=== PATIENT | female | born 1955 | race African-American/Black ===

== ENCOUNTER 2020-07-16 09:08 | Outpatient (CLI) | payer OTHER | END 2020-07-16 09:09 | disposition home or self-care (01) | LOC: CSHWCC 09:08 | PROVIDERS: ATTEND Nurse Practitioner Family | DX: I87.313 Chronic venous hypertension (idiopathic) with ulcer of bilateral lower extremity (principal); L89.152 Pressure ulcer of sacral region, stage 2; I87.2 Venous insufficiency (chronic) (peripheral); L97.822 Non-pressure chronic ulcer of other part of left lower leg with fat layer exposed; L97.812 Non-pressure chronic ulcer of other part of right lower leg with fat layer exposed; L03.116 Cellulitis of left lower limb; R60.0 Localized edema; E03.8 Other specified hypothyroidism; B96.89 Other specified bacterial agents as the cause of diseases classified elsewhere | CPT/HCPCS: 29581; 99213; G0463 ==

== ENCOUNTER 2020-08-06 12:32 | Outpatient (CLI) | payer OTHER | END 2020-08-06 12:33 | disposition home or self-care (01) | LOC: CSHWCC 12:32 | PROVIDERS: ATTEND Nurse Practitioner Family | DX: I87.313 Chronic venous hypertension (idiopathic) with ulcer of bilateral lower extremity (principal); I87.2 Venous insufficiency (chronic) (peripheral); L89.152 Pressure ulcer of sacral region, stage 2; L97.822 Non-pressure chronic ulcer of other part of left lower leg with fat layer exposed; L97.812 Non-pressure chronic ulcer of other part of right lower leg with fat layer exposed; R60.0 Localized edema; E03.8 Other specified hypothyroidism; L03.116 Cellulitis of left lower limb; B96.89 Other specified bacterial agents as the cause of diseases classified elsewhere | CPT/HCPCS: 29581; 99213; G0463 ==

== ENCOUNTER 2020-11-12 09:11 | Outpatient (CLI) | payer OTHER | END 2020-11-12 09:12 | disposition home or self-care (01) | LOC: CSHWCC 09:11 | PROVIDERS: ATTEND Nurse Practitioner Family | DX: I87.312 Chronic venous hypertension (idiopathic) with ulcer of left lower extremity (principal); I87.2 Venous insufficiency (chronic) (peripheral); L97.822 Non-pressure chronic ulcer of other part of left lower leg with fat layer exposed; L03.116 Cellulitis of left lower limb; E03.8 Other specified hypothyroidism; B96.89 Other specified bacterial agents as the cause of diseases classified elsewhere; R60.0 Localized edema | CPT/HCPCS: 11042; 11045; 99213; G0463 ==

== ENCOUNTER 2020-12-10 10:11 | Outpatient (CLI) | payer MEDICARE, OTHER | END 2020-12-10 10:12 | disposition home or self-care (01) | LOC: CSHWCC 10:11 | PROVIDERS: ATTEND Nurse Practitioner Family | DX: I87.312 Chronic venous hypertension (idiopathic) with ulcer of left lower extremity (principal); L97.822 Non-pressure chronic ulcer of other part of left lower leg with fat layer exposed; L03.116 Cellulitis of left lower limb; R60.0 Localized edema; I87.2 Venous insufficiency (chronic) (peripheral); E03.8 Other specified hypothyroidism; B96.89 Other specified bacterial agents as the cause of diseases classified elsewhere | CPT/HCPCS: 11042; 11045; 99213; G0463 ==

== ENCOUNTER 2021-02-05 11:00 | Outpatient (CLI) | payer MEDICARE, OTHER | END 2021-02-05 11:01 | disposition home or self-care (01) | LOC: CSHWCC 11:00 | PROVIDERS: ATTEND Nurse Practitioner Family | DX: I87.312 Chronic venous hypertension (idiopathic) with ulcer of left lower extremity (principal); E03.8 Other specified hypothyroidism; I87.2 Venous insufficiency (chronic) (peripheral); L97.222 Non-pressure chronic ulcer of left calf with fat layer exposed; L97.322 Non-pressure chronic ulcer of left ankle with fat layer exposed; L97.822 Non-pressure chronic ulcer of other part of left lower leg with fat layer exposed; L03.116 Cellulitis of left lower limb; B96.89 Other specified bacterial agents as the cause of diseases classified elsewhere; R60.0 Localized edema | CPT/HCPCS: 29581; 97139; G0463; 99213 ==

== ENCOUNTER 2021-02-09 09:20 | Outpatient (CLI) | payer MEDICARE, OTHER | END 2021-02-09 09:21 | disposition home or self-care (01) | LOC: CSHWCC 09:20 | PROVIDERS: ATTEND Nurse Practitioner Family | DX: I87.312 Chronic venous hypertension (idiopathic) with ulcer of left lower extremity (principal); L97.322 Non-pressure chronic ulcer of left ankle with fat layer exposed; L97.822 Non-pressure chronic ulcer of other part of left lower leg with fat layer exposed; L03.116 Cellulitis of left lower limb; B96.89 Other specified bacterial agents as the cause of diseases classified elsewhere; R60.0 Localized edema; E03.8 Other specified hypothyroidism | CPT/HCPCS: 29581; 99213; G0463 ==

== ENCOUNTER 2021-02-12 09:58 | Outpatient (CLI) | payer MEDICARE, OTHER | END 2021-02-12 09:59 | disposition home or self-care (01) | LOC: CSHWCC 09:58 | PROVIDERS: ATTEND Nurse Practitioner Family | DX: I87.312 Chronic venous hypertension (idiopathic) with ulcer of left lower extremity (principal); I87.2 Venous insufficiency (chronic) (peripheral); L97.222 Non-pressure chronic ulcer of left calf with fat layer exposed; L97.322 Non-pressure chronic ulcer of left ankle with fat layer exposed; L97.822 Non-pressure chronic ulcer of other part of left lower leg with fat layer exposed; L03.116 Cellulitis of left lower limb; R60.0 Localized edema; E03.8 Other specified hypothyroidism; B96.89 Other specified bacterial agents as the cause of diseases classified elsewhere | CPT/HCPCS: 29581; 99213; G0463 ==

== ENCOUNTER 2021-02-16 15:08 | Outpatient (CLI) | payer MEDICARE, OTHER | END 2021-02-16 15:09 | disposition home or self-care (01) | LOC: CSHWCC 15:08 | PROVIDERS: ATTEND Nurse Practitioner Family | DX: I87.312 Chronic venous hypertension (idiopathic) with ulcer of left lower extremity (principal); L97.222 Non-pressure chronic ulcer of left calf with fat layer exposed; L97.322 Non-pressure chronic ulcer of left ankle with fat layer exposed; L97.822 Non-pressure chronic ulcer of other part of left lower leg with fat layer exposed; R60.0 Localized edema; E03.8 Other specified hypothyroidism; I87.2 Venous insufficiency (chronic) (peripheral); L03.116 Cellulitis of left lower limb; B96.89 Other specified bacterial agents as the cause of diseases classified elsewhere | CPT/HCPCS: 29581; 97139; G0463; 99213 ==

== ENCOUNTER 2021-02-19 08:46 | Outpatient (CLI) | payer OTHER, MEDICARE | END 2021-02-19 08:47 | disposition home or self-care (01) | LOC: CSHWCC 08:46 | PROVIDERS: ATTEND Nurse Practitioner Family | DX: I87.312 Chronic venous hypertension (idiopathic) with ulcer of left lower extremity (principal); I87.2 Venous insufficiency (chronic) (peripheral); L97.222 Non-pressure chronic ulcer of left calf with fat layer exposed; L97.322 Non-pressure chronic ulcer of left ankle with fat layer exposed; L97.822 Non-pressure chronic ulcer of other part of left lower leg with fat layer exposed; L03.116 Cellulitis of left lower limb; R60.0 Localized edema; E03.8 Other specified hypothyroidism; B96.89 Other specified bacterial agents as the cause of diseases classified elsewhere ==

== ENCOUNTER 2021-02-24 10:59 | Outpatient (CLI) | payer OTHER, MEDICARE | END 2021-02-24 11:00 | disposition home or self-care (01) | LOC: CSHWCC 10:59 | PROVIDERS: ATTEND Nurse Practitioner Family | DX: I87.312 Chronic venous hypertension (idiopathic) with ulcer of left lower extremity (principal); I87.2 Venous insufficiency (chronic) (peripheral); L97.222 Non-pressure chronic ulcer of left calf with fat layer exposed; L03.116 Cellulitis of left lower limb; R60.0 Localized edema; E03.8 Other specified hypothyroidism; B96.89 Other specified bacterial agents as the cause of diseases classified elsewhere | CPT/HCPCS: 29581; 99213; G0463 ==

== ENCOUNTER 2021-02-26 10:19 | Outpatient (CLI) | payer OTHER, MEDICARE | END 2021-02-26 10:20 | disposition home or self-care (01) | LOC: CSHWCC 10:19 | PROVIDERS: ATTEND Nurse Practitioner Family | DX: I87.312 Chronic venous hypertension (idiopathic) with ulcer of left lower extremity (principal); I87.2 Venous insufficiency (chronic) (peripheral); L97.222 Non-pressure chronic ulcer of left calf with fat layer exposed; L97.322 Non-pressure chronic ulcer of left ankle with fat layer exposed; L97.822 Non-pressure chronic ulcer of other part of left lower leg with fat layer exposed; L03.116 Cellulitis of left lower limb; R60.0 Localized edema; E03.8 Other specified hypothyroidism; B96.89 Other specified bacterial agents as the cause of diseases classified elsewhere | CPT/HCPCS: 29581; 99213; G0463 ==

== ENCOUNTER 2021-03-02 09:35 | Outpatient (CLI) | payer MEDICARE, OTHER | END 2021-03-02 09:36 | disposition home or self-care (01) | LOC: CSHWCC 09:35 | PROVIDERS: ATTEND Nurse Practitioner Family | DX: I87.312 Chronic venous hypertension (idiopathic) with ulcer of left lower extremity (principal); I87.2 Venous insufficiency (chronic) (peripheral); L97.222 Non-pressure chronic ulcer of left calf with fat layer exposed; L97.322 Non-pressure chronic ulcer of left ankle with fat layer exposed; L97.822 Non-pressure chronic ulcer of other part of left lower leg with fat layer exposed; L03.116 Cellulitis of left lower limb; E03.8 Other specified hypothyroidism; B96.89 Other specified bacterial agents as the cause of diseases classified elsewhere; R60.0 Localized edema | CPT/HCPCS: 29581; 99213; G0463 ==

== ENCOUNTER 2021-03-05 10:30 | Outpatient (CLI) | payer MEDICARE | END 2021-03-05 10:31 | disposition home or self-care (01) | LOC: CSHWCC 10:30 | PROVIDERS: ATTEND Nurse Practitioner Family | DX: I87.312 Chronic venous hypertension (idiopathic) with ulcer of left lower extremity (principal); I87.2 Venous insufficiency (chronic) (peripheral); L97.222 Non-pressure chronic ulcer of left calf with fat layer exposed; L97.322 Non-pressure chronic ulcer of left ankle with fat layer exposed; L97.822 Non-pressure chronic ulcer of other part of left lower leg with fat layer exposed; L03.116 Cellulitis of left lower limb; R60.0 Localized edema; E03.8 Other specified hypothyroidism | CPT/HCPCS: 29581; 97139; G0463; 99213 ==

== ENCOUNTER 2021-03-11 11:17 | Outpatient (CLI) | payer OTHER, MEDICARE | END 2021-03-11 11:18 | disposition home or self-care (01) | LOC: CSHWCC 11:17 | PROVIDERS: ATTEND Nurse Practitioner Family | DX: I87.312 Chronic venous hypertension (idiopathic) with ulcer of left lower extremity (principal); I87.2 Venous insufficiency (chronic) (peripheral); L97.222 Non-pressure chronic ulcer of left calf with fat layer exposed; L97.322 Non-pressure chronic ulcer of left ankle with fat layer exposed; L97.822 Non-pressure chronic ulcer of other part of left lower leg with fat layer exposed; E03.8 Other specified hypothyroidism; L03.116 Cellulitis of left lower limb; B96.89 Other specified bacterial agents as the cause of diseases classified elsewhere; R60.0 Localized edema | CPT/HCPCS: 29581; 99213; G0463 ==

== ENCOUNTER 2021-03-16 11:09 | Outpatient (CLI) | payer OTHER, MEDICARE | END 2021-03-16 11:10 | disposition home or self-care (01) | LOC: CSHWCC 11:09 | PROVIDERS: ATTEND Nurse Practitioner Family | DX: I87.312 Chronic venous hypertension (idiopathic) with ulcer of left lower extremity (principal); I87.2 Venous insufficiency (chronic) (peripheral); L97.222 Non-pressure chronic ulcer of left calf with fat layer exposed; L97.322 Non-pressure chronic ulcer of left ankle with fat layer exposed; L97.822 Non-pressure chronic ulcer of other part of left lower leg with fat layer exposed; L03.116 Cellulitis of left lower limb; E03.8 Other specified hypothyroidism; B96.89 Other specified bacterial agents as the cause of diseases classified elsewhere; R60.0 Localized edema | CPT/HCPCS: 29581; 99213; G0463 ==

== ENCOUNTER 2021-03-19 09:43 | Outpatient (CLI) | payer OTHER, MEDICARE | END 2021-03-19 09:44 | disposition home or self-care (01) | LOC: CSHWCC 09:43 | PROVIDERS: ATTEND Nurse Practitioner Family | DX: I87.312 Chronic venous hypertension (idiopathic) with ulcer of left lower extremity (principal); L97.222 Non-pressure chronic ulcer of left calf with fat layer exposed; L97.322 Non-pressure chronic ulcer of left ankle with fat layer exposed; L97.822 Non-pressure chronic ulcer of other part of left lower leg with fat layer exposed; R60.0 Localized edema; L03.116 Cellulitis of left lower limb; E03.8 Other specified hypothyroidism; I87.2 Venous insufficiency (chronic) (peripheral); B96.89 Other specified bacterial agents as the cause of diseases classified elsewhere | CPT/HCPCS: 29581; 99213; G0463 ==

== ENCOUNTER 2021-03-23 09:22 | Outpatient (CLI) | payer OTHER, MEDICARE | END 2021-03-23 09:23 | disposition home or self-care (01) | LOC: CSHWCC 09:22 | PROVIDERS: ATTEND Nurse Practitioner Family | DX: I87.312 Chronic venous hypertension (idiopathic) with ulcer of left lower extremity (principal); I87.2 Venous insufficiency (chronic) (peripheral); L97.222 Non-pressure chronic ulcer of left calf with fat layer exposed; L97.322 Non-pressure chronic ulcer of left ankle with fat layer exposed; L97.822 Non-pressure chronic ulcer of other part of left lower leg with fat layer exposed; L03.116 Cellulitis of left lower limb; R60.0 Localized edema; B96.89 Other specified bacterial agents as the cause of diseases classified elsewhere; E03.8 Other specified hypothyroidism | CPT/HCPCS: 29581; 99213; G0463 ==

== ENCOUNTER 2021-04-02 13:37 | Outpatient (CLI) | payer OTHER, MEDICARE | END 2021-04-02 13:38 | disposition home or self-care (01) | LOC: CSHWCC 13:37 | PROVIDERS: ATTEND Nurse Practitioner Family | DX: I87.312 Chronic venous hypertension (idiopathic) with ulcer of left lower extremity (principal); E03.8 Other specified hypothyroidism; I87.2 Venous insufficiency (chronic) (peripheral); L97.222 Non-pressure chronic ulcer of left calf with fat layer exposed; L97.322 Non-pressure chronic ulcer of left ankle with fat layer exposed; L97.822 Non-pressure chronic ulcer of other part of left lower leg with fat layer exposed; L03.116 Cellulitis of left lower limb; B96.89 Other specified bacterial agents as the cause of diseases classified elsewhere; R60.0 Localized edema | CPT/HCPCS: 29581; 99213; G0463 ==

== ENCOUNTER 2021-04-06 13:08 | Outpatient (CLI) | payer OTHER, MEDICARE | END 2021-04-06 13:09 | disposition home or self-care (01) | LOC: CSHWCC 13:08 | PROVIDERS: ATTEND Nurse Practitioner Family | DX: I87.312 Chronic venous hypertension (idiopathic) with ulcer of left lower extremity (principal); I87.2 Venous insufficiency (chronic) (peripheral); L97.222 Non-pressure chronic ulcer of left calf with fat layer exposed; L97.822 Non-pressure chronic ulcer of other part of left lower leg with fat layer exposed; L03.116 Cellulitis of left lower limb; B96.89 Other specified bacterial agents as the cause of diseases classified elsewhere; E03.8 Other specified hypothyroidism; R60.0 Localized edema | CPT/HCPCS: 29581; 99213; G0463 ==

== ENCOUNTER 2021-04-09 14:52 | Outpatient (CLI) | payer OTHER, MEDICARE | END 2021-04-09 14:53 | disposition home or self-care (01) | LOC: CSHWCC 14:52 | PROVIDERS: ATTEND Nurse Practitioner Family | DX: I87.332 Chronic venous hypertension (idiopathic) with ulcer and inflammation of left lower extremity (principal); L97.222 Non-pressure chronic ulcer of left calf with fat layer exposed; R60.0 Localized edema; E11.65 Type 2 diabetes mellitus with hyperglycemia; G90.09 Other idiopathic peripheral autonomic neuropathy; H40.9 Unspecified glaucoma; I10 Essential (primary) hypertension; I82.409 Acute embolism and thrombosis of unspecified deep veins of unspecified lower extremity; I87.2 Venous insufficiency (chronic) (peripheral); M13.80 Other specified arthritis, unspecified site | CPT/HCPCS: 29581 ==

== ENCOUNTER 2021-04-13 08:35 | Outpatient (CLI) | payer OTHER, MEDICARE | END 2021-04-13 08:36 | disposition home or self-care (01) | LOC: CSHWCC 08:35 | PROVIDERS: ATTEND Nurse Practitioner Family | DX: I87.312 Chronic venous hypertension (idiopathic) with ulcer of left lower extremity (principal); I87.2 Venous insufficiency (chronic) (peripheral); L97.222 Non-pressure chronic ulcer of left calf with fat layer exposed; L97.822 Non-pressure chronic ulcer of other part of left lower leg with fat layer exposed; L03.116 Cellulitis of left lower limb; E03.8 Other specified hypothyroidism; B96.89 Other specified bacterial agents as the cause of diseases classified elsewhere; R60.0 Localized edema | CPT/HCPCS: 29581; 99213; G0463 ==

== ENCOUNTER 2021-04-16 15:06 | Outpatient (CLI) | payer OTHER, MEDICARE | END 2021-04-16 15:07 | disposition home or self-care (01) | LOC: CSHWCC 15:06 | PROVIDERS: ATTEND Nurse Practitioner Family | DX: I87.312 Chronic venous hypertension (idiopathic) with ulcer of left lower extremity (principal); E03.8 Other specified hypothyroidism; I87.2 Venous insufficiency (chronic) (peripheral); L97.222 Non-pressure chronic ulcer of left calf with fat layer exposed; L97.822 Non-pressure chronic ulcer of other part of left lower leg with fat layer exposed; L03.116 Cellulitis of left lower limb; B96.89 Other specified bacterial agents as the cause of diseases classified elsewhere; R60.0 Localized edema | CPT/HCPCS: 29581; 99213; G0463 ==

== ENCOUNTER 2021-04-20 09:45 | Outpatient (CLI) | payer OTHER, MEDICARE | END 2021-04-20 09:46 | disposition home or self-care (01) | LOC: CSHWCC 09:45 | PROVIDERS: ATTEND Nurse Practitioner Family | DX: I87.312 Chronic venous hypertension (idiopathic) with ulcer of left lower extremity (principal); I87.2 Venous insufficiency (chronic) (peripheral); L97.222 Non-pressure chronic ulcer of left calf with fat layer exposed; L97.822 Non-pressure chronic ulcer of other part of left lower leg with fat layer exposed; E03.8 Other specified hypothyroidism; L03.116 Cellulitis of left lower limb; B96.89 Other specified bacterial agents as the cause of diseases classified elsewhere; R60.0 Localized edema | CPT/HCPCS: 29581; 99213; G0463 ==

== ENCOUNTER 2021-04-23 15:33 | Outpatient (CLI) | payer MEDICARE, BC | END 2021-04-23 15:34 | disposition home or self-care (01) | LOC: CSHWCC 15:33 | PROVIDERS: ATTEND Nurse Practitioner Family | DX: I87.312 Chronic venous hypertension (idiopathic) with ulcer of left lower extremity (principal); I87.2 Venous insufficiency (chronic) (peripheral); L97.222 Non-pressure chronic ulcer of left calf with fat layer exposed; L03.116 Cellulitis of left lower limb; R60.0 Localized edema; E03.8 Other specified hypothyroidism; B96.89 Other specified bacterial agents as the cause of diseases classified elsewhere ==

== ENCOUNTER 2021-04-27 15:43 | Outpatient (CLI) | payer OTHER, MEDICARE | END 2021-04-27 15:44 | disposition home or self-care (01) | LOC: CSHWCC 15:43 | PROVIDERS: ATTEND Nurse Practitioner Family | DX: I87.312 Chronic venous hypertension (idiopathic) with ulcer of left lower extremity (principal); L97.222 Non-pressure chronic ulcer of left calf with fat layer exposed; L97.822 Non-pressure chronic ulcer of other part of left lower leg with fat layer exposed; L03.116 Cellulitis of left lower limb; R60.0 Localized edema; E03.8 Other specified hypothyroidism; I87.2 Venous insufficiency (chronic) (peripheral); B96.89 Other specified bacterial agents as the cause of diseases classified elsewhere ==

== ENCOUNTER 2021-04-30 15:29 | Outpatient (CLI) | payer OTHER, MEDICARE | END 2021-04-30 15:30 | disposition home or self-care (01) | LOC: CSHWCC 15:29 | PROVIDERS: ATTEND Nurse Practitioner Family | DX: I87.312 Chronic venous hypertension (idiopathic) with ulcer of left lower extremity (principal); L97.822 Non-pressure chronic ulcer of other part of left lower leg with fat layer exposed; L97.222 Non-pressure chronic ulcer of left calf with fat layer exposed; R60.0 Localized edema; L03.116 Cellulitis of left lower limb; E03.8 Other specified hypothyroidism; I87.2 Venous insufficiency (chronic) (peripheral); B96.89 Other specified bacterial agents as the cause of diseases classified elsewhere ==

== ENCOUNTER 2021-05-04 14:56 | Outpatient (CLI) | payer OTHER, MEDICARE | END 2021-05-04 14:57 | disposition home or self-care (01) | LOC: CSHWCC 14:56 | PROVIDERS: ATTEND Nurse Practitioner Family | DX: I87.312 Chronic venous hypertension (idiopathic) with ulcer of left lower extremity (principal); I87.2 Venous insufficiency (chronic) (peripheral); L97.822 Non-pressure chronic ulcer of other part of left lower leg with fat layer exposed; L97.222 Non-pressure chronic ulcer of left calf with fat layer exposed; L03.116 Cellulitis of left lower limb; E03.8 Other specified hypothyroidism; B96.89 Other specified bacterial agents as the cause of diseases classified elsewhere; R60.0 Localized edema ==

== ENCOUNTER 2021-05-07 15:28 | Outpatient (CLI) | payer OTHER, MEDICARE | END 2021-05-07 15:29 | disposition home or self-care (01) | LOC: CSHWCC 15:28 | PROVIDERS: ATTEND Nurse Practitioner Family | DX: I87.312 Chronic venous hypertension (idiopathic) with ulcer of left lower extremity (principal); L97.222 Non-pressure chronic ulcer of left calf with fat layer exposed; L97.822 Non-pressure chronic ulcer of other part of left lower leg with fat layer exposed; L03.116 Cellulitis of left lower limb; R60.0 Localized edema; E03.8 Other specified hypothyroidism; I87.2 Venous insufficiency (chronic) (peripheral); B96.89 Other specified bacterial agents as the cause of diseases classified elsewhere | CPT/HCPCS: 29581; 99213; G0463 ==

== ENCOUNTER 2021-05-14 12:55 | Outpatient (CLI) | payer MEDICARE, BC | END 2021-05-14 12:56 | disposition home or self-care (01) | LOC: CSHWCC 12:55 | PROVIDERS: ATTEND Nurse Practitioner Family | DX: I87.312 Chronic venous hypertension (idiopathic) with ulcer of left lower extremity (principal); L97.321 Non-pressure chronic ulcer of left ankle limited to breakdown of skin; R60.0 Localized edema ==

== ENCOUNTER 2021-05-18 15:10 | Outpatient (CLI) | payer OTHER, MEDICARE, BC | END 2021-05-18 15:11 | disposition home or self-care (01) | LOC: CSHWCC 15:10 | PROVIDERS: ATTEND Nurse Practitioner Family | DX: I87.313 Chronic venous hypertension (idiopathic) with ulcer of bilateral lower extremity (principal); R60.0 Localized edema; L97.929 Non-pressure chronic ulcer of unspecified part of left lower leg with unspecified severity; L97.919 Non-pressure chronic ulcer of unspecified part of right lower leg with unspecified severity | CPT/HCPCS: 29581; 97139; G0463; 99213 ==

== ENCOUNTER 2021-05-25 12:45 | Outpatient (CLI) | payer OTHER, MEDICARE, BC | END 2021-05-25 12:46 | disposition home or self-care (01) | LOC: CSHWCC 12:45 | PROVIDERS: ATTEND Nurse Practitioner Family | DX: I87.312 Chronic venous hypertension (idiopathic) with ulcer of left lower extremity (principal); L97.929 Non-pressure chronic ulcer of unspecified part of left lower leg with unspecified severity; R60.0 Localized edema | CPT/HCPCS: 29581 ==

== ENCOUNTER 2021-05-28 15:29 | Outpatient (CLI) | payer BC, MEDICARE | END 2021-05-28 15:30 | disposition home or self-care (01) | LOC: CSHWCC 15:29 | PROVIDERS: ATTEND Nurse Practitioner Family | DX: I87.313 Chronic venous hypertension (idiopathic) with ulcer of bilateral lower extremity (principal); L97.929 Non-pressure chronic ulcer of unspecified part of left lower leg with unspecified severity; L97.919 Non-pressure chronic ulcer of unspecified part of right lower leg with unspecified severity; R60.0 Localized edema ==

== ENCOUNTER 2021-06-01 14:10 | Outpatient (CLI) | payer OTHER, MEDICARE, BC | END 2021-06-01 14:11 | disposition home or self-care (01) | LOC: CSHWCC 14:10 | PROVIDERS: ATTEND Nurse Practitioner Family | DX: I87.312 Chronic venous hypertension (idiopathic) with ulcer of left lower extremity (principal); L97.821 Non-pressure chronic ulcer of other part of left lower leg limited to breakdown of skin; R60.0 Localized edema ==

== ENCOUNTER 2021-06-04 14:02 | Outpatient (CLI) | payer OTHER, MEDICARE, BC | END 2021-06-04 14:03 | disposition home or self-care (01) | LOC: CSHWCC 14:02 | PROVIDERS: ATTEND Nurse Practitioner Family | DX: I87.312 Chronic venous hypertension (idiopathic) with ulcer of left lower extremity (principal); L97.321 Non-pressure chronic ulcer of left ankle limited to breakdown of skin; R60.0 Localized edema | CPT/HCPCS: 29581 ==

== ENCOUNTER 2021-06-08 15:06 | Outpatient (CLI) | payer OTHER, MEDICARE, BC | END 2021-06-08 15:07 | disposition home or self-care (01) | LOC: CSHWCC 15:06 | PROVIDERS: ATTEND Nurse Practitioner Family | DX: I87.312 Chronic venous hypertension (idiopathic) with ulcer of left lower extremity (principal); L97.321 Non-pressure chronic ulcer of left ankle limited to breakdown of skin; R60.0 Localized edema ==

== ENCOUNTER 2021-06-11 11:23 | Outpatient (CLI) | payer OTHER, MEDICARE | END 2021-06-11 11:24 | disposition home or self-care (01) | LOC: CSHWCC 11:23 | PROVIDERS: ATTEND Nurse Practitioner Family | DX: I87.312 Chronic venous hypertension (idiopathic) with ulcer of left lower extremity (principal); L97.321 Non-pressure chronic ulcer of left ankle limited to breakdown of skin; R60.0 Localized edema | CPT/HCPCS: 29581 ==

== ENCOUNTER 2021-06-15 12:12 | Outpatient (CLI) | payer OTHER, MEDICARE | END 2021-06-15 12:13 | disposition home or self-care (01) | LOC: CSHWCC 12:12 | PROVIDERS: ATTEND Nurse Practitioner Family | DX: I87.312 Chronic venous hypertension (idiopathic) with ulcer of left lower extremity (principal); L97.329 Non-pressure chronic ulcer of left ankle with unspecified severity; R60.0 Localized edema | CPT/HCPCS: 29581; 99213; G0463 ==

== ENCOUNTER 2021-06-22 15:36 | Outpatient (CLI) | payer OTHER, MEDICARE, BC | END 2021-06-22 15:37 | disposition home or self-care (01) | LOC: CSHWCC 15:36 | PROVIDERS: ATTEND Nurse Practitioner Family | DX: I87.312 Chronic venous hypertension (idiopathic) with ulcer of left lower extremity (principal); L97.321 Non-pressure chronic ulcer of left ankle limited to breakdown of skin; R60.0 Localized edema ==

== ENCOUNTER 2021-07-17 11:36 | Outpatient (CLI) | payer OTHER, MEDICARE | END 2021-07-17 11:37 | disposition home or self-care (01) | LOC: CSHWCC 11:36 | PROVIDERS: ATTEND Nurse Practitioner Family | DX: I87.312 Chronic venous hypertension (idiopathic) with ulcer of left lower extremity (principal); L97.321 Non-pressure chronic ulcer of left ankle limited to breakdown of skin; R60.0 Localized edema ==

== ENCOUNTER 2021-07-24 11:11 | Outpatient (CLI) | payer BC, MEDICARE | END 2021-07-24 11:12 | disposition home or self-care (01) | LOC: CSHWCC 11:11 | PROVIDERS: ATTEND Nurse Practitioner Family | DX: I87.312 Chronic venous hypertension (idiopathic) with ulcer of left lower extremity (principal); L97.321 Non-pressure chronic ulcer of left ankle limited to breakdown of skin; R60.0 Localized edema | CPT/HCPCS: 29581 ==

== ENCOUNTER 2021-08-05 15:31 | Outpatient (CLI) | payer BC, MEDICARE | END 2021-08-05 15:32 | disposition home or self-care (01) | LOC: CSHWCC 15:31 | PROVIDERS: ATTEND Nurse Practitioner Family | DX: I87.312 Chronic venous hypertension (idiopathic) with ulcer of left lower extremity (principal); L97.321 Non-pressure chronic ulcer of left ankle limited to breakdown of skin; R60.0 Localized edema | CPT/HCPCS: 29581 ==

== ENCOUNTER 2021-08-12 14:50 | Outpatient (CLI) | payer MEDICARE, OTHER | END 2021-08-12 14:51 | disposition home or self-care (01) | LOC: CSHWCC 14:50 | PROVIDERS: ATTEND Nurse Practitioner Family | DX: I87.312 Chronic venous hypertension (idiopathic) with ulcer of left lower extremity (principal); L97.321 Non-pressure chronic ulcer of left ankle limited to breakdown of skin; R60.0 Localized edema | CPT/HCPCS: 29581 ==

== ENCOUNTER 2021-08-19 15:26 | Outpatient (CLI) | payer BC, MEDICARE, OTHER | END 2021-08-19 15:27 | disposition home or self-care (01) | LOC: CSHWCC 15:26 | PROVIDERS: ATTEND Nurse Practitioner Family | DX: I87.312 Chronic venous hypertension (idiopathic) with ulcer of left lower extremity (principal); L97.321 Non-pressure chronic ulcer of left ankle limited to breakdown of skin; R60.0 Localized edema | CPT/HCPCS: 29581; 87070; 87077; 87186; 87205; 99213; G0463 ==

== ENCOUNTER 2021-08-26 15:20 | Outpatient (CLI) | payer BC, MEDICARE, OTHER | END 2021-08-26 15:21 | disposition home or self-care (01) | LOC: CSHWCC 15:20 | PROVIDERS: ATTEND Nurse Practitioner Family | DX: I87.312 Chronic venous hypertension (idiopathic) with ulcer of left lower extremity (principal); L97.321 Non-pressure chronic ulcer of left ankle limited to breakdown of skin; R60.0 Localized edema | CPT/HCPCS: 29581 ==

== ENCOUNTER 2021-09-02 15:20 | Outpatient (CLI) | payer BC, MEDICARE, OTHER | END 2021-09-02 15:21 | disposition home or self-care (01) | LOC: CSHWCC 15:20 | PROVIDERS: ATTEND Nurse Practitioner Family | DX: I87.312 Chronic venous hypertension (idiopathic) with ulcer of left lower extremity (principal); L97.321 Non-pressure chronic ulcer of left ankle limited to breakdown of skin; R60.0 Localized edema | CPT/HCPCS: 29581 ==

== ENCOUNTER 2021-09-09 15:29 | Outpatient (CLI) | payer MEDICARE, BC, OTHER | END 2021-09-09 15:30 | disposition home or self-care (01) | LOC: CSHWCC 15:29 | PROVIDERS: ATTEND Nurse Practitioner Family | DX: I87.312 Chronic venous hypertension (idiopathic) with ulcer of left lower extremity (principal); L97.321 Non-pressure chronic ulcer of left ankle limited to breakdown of skin; R60.0 Localized edema | CPT/HCPCS: 29581 ==

== ENCOUNTER 2021-09-17 15:23 | Outpatient (CLI) | payer BC, MEDICARE, OTHER | END 2021-09-17 15:24 | disposition home or self-care (01) | LOC: CSHWCC 15:23 | PROVIDERS: ATTEND Nurse Practitioner Family | DX: I87.312 Chronic venous hypertension (idiopathic) with ulcer of left lower extremity (principal); L97.312 Non-pressure chronic ulcer of right ankle with fat layer exposed; R60.0 Localized edema ==

== ENCOUNTER 2021-09-24 15:04 | Outpatient (CLI) | payer BC, MEDICARE | END 2021-09-24 15:05 | disposition home or self-care (01) | LOC: CSHWCC 15:04 | PROVIDERS: ATTEND Nurse Practitioner Family | DX: I87.312 Chronic venous hypertension (idiopathic) with ulcer of left lower extremity (principal); L97.321 Non-pressure chronic ulcer of left ankle limited to breakdown of skin; R60.0 Localized edema | CPT/HCPCS: 17250 ==

== ENCOUNTER 2021-10-01 14:57 | Outpatient (CLI) | payer BC, MEDICARE, OTHER | END 2021-10-01 14:58 | disposition home or self-care (01) | LOC: CSHWCC 14:57 | PROVIDERS: ATTEND Nurse Practitioner Family | DX: I87.312 Chronic venous hypertension (idiopathic) with ulcer of left lower extremity (principal); L97.321 Non-pressure chronic ulcer of left ankle limited to breakdown of skin; R60.0 Localized edema | CPT/HCPCS: 29581 ==

== ENCOUNTER 2021-10-08 13:44 | Outpatient (CLI) | payer BC, MEDICARE | END 2021-10-08 13:45 | disposition home or self-care (01) | LOC: CSHWCC 13:44 | PROVIDERS: ATTEND Nurse Practitioner Family | DX: I87.312 Chronic venous hypertension (idiopathic) with ulcer of left lower extremity (principal); L97.321 Non-pressure chronic ulcer of left ankle limited to breakdown of skin; R60.0 Localized edema | CPT/HCPCS: 29581 ==

== ENCOUNTER 2021-10-15 14:53 | Outpatient (CLI) | payer BC, MEDICARE | END 2021-10-15 14:54 | disposition home or self-care (01) | LOC: CSHWCC 14:53 | PROVIDERS: ATTEND Nurse Practitioner Family | DX: I87.312 Chronic venous hypertension (idiopathic) with ulcer of left lower extremity (principal); L97.321 Non-pressure chronic ulcer of left ankle limited to breakdown of skin; R60.0 Localized edema | CPT/HCPCS: 29581; 99213; G0463 ==

== ENCOUNTER 2021-10-22 15:07 | Outpatient (CLI) | payer BC, MEDICARE, OTHER | END 2021-10-22 15:08 | disposition home or self-care (01) | LOC: CSHWCC 15:07 | PROVIDERS: ATTEND Nurse Practitioner Family | DX: I87.331 Chronic venous hypertension (idiopathic) with ulcer and inflammation of right lower extremity (principal); L97.321 Non-pressure chronic ulcer of left ankle limited to breakdown of skin; L97.212 Non-pressure chronic ulcer of right calf with fat layer exposed; R60.0 Localized edema ==

== ENCOUNTER 2021-10-29 14:29 | Outpatient (CLI) | payer BC, MEDICARE, OTHER | END 2021-10-29 14:30 | disposition home or self-care (01) | LOC: CSHWCC 14:29 | PROVIDERS: ATTEND Nurse Practitioner Family | DX: I87.331 Chronic venous hypertension (idiopathic) with ulcer and inflammation of right lower extremity (principal); L97.212 Non-pressure chronic ulcer of right calf with fat layer exposed; R60.0 Localized edema ==

== ENCOUNTER 2021-11-05 14:57 | Outpatient (CLI) | payer BC, MEDICARE | END 2021-11-05 14:58 | disposition home or self-care (01) | LOC: CSHWCC 14:57 | PROVIDERS: ATTEND Nurse Practitioner Family | DX: I87.331 Chronic venous hypertension (idiopathic) with ulcer and inflammation of right lower extremity (principal); L97.212 Non-pressure chronic ulcer of right calf with fat layer exposed; R60.0 Localized edema; I87.312 Chronic venous hypertension (idiopathic) with ulcer of left lower extremity; L97.321 Non-pressure chronic ulcer of left ankle limited to breakdown of skin | CPT/HCPCS: 29581 ==

== ENCOUNTER 2021-11-12 15:22 | Outpatient (CLI) | payer MEDICARE, BC | END 2021-11-12 15:23 | disposition home or self-care (01) | LOC: CSHWCC 15:22 | PROVIDERS: ATTEND Nurse Practitioner Family | DX: I87.331 Chronic venous hypertension (idiopathic) with ulcer and inflammation of right lower extremity (principal); I87.312 Chronic venous hypertension (idiopathic) with ulcer of left lower extremity; L97.321 Non-pressure chronic ulcer of left ankle limited to breakdown of skin; L97.212 Non-pressure chronic ulcer of right calf with fat layer exposed; R60.0 Localized edema ==

== ENCOUNTER 2021-11-19 08:09 | Outpatient (CLI) | payer BC, MEDICARE | END 2021-11-19 08:10 | disposition home or self-care (01) | LOC: CSHWCC 08:09 | PROVIDERS: ATTEND Nurse Practitioner Family | DX: I87.331 Chronic venous hypertension (idiopathic) with ulcer and inflammation of right lower extremity (principal); I87.312 Chronic venous hypertension (idiopathic) with ulcer of left lower extremity; L97.212 Non-pressure chronic ulcer of right calf with fat layer exposed; L97.321 Non-pressure chronic ulcer of left ankle limited to breakdown of skin; R60.0 Localized edema | CPT/HCPCS: 29581 ==

== ENCOUNTER 2021-11-26 15:07 | Outpatient (CLI) | payer MEDICARE, OTHER, BC | END 2021-11-26 15:08 | disposition home or self-care (01) | LOC: CSHWCC 15:07 | PROVIDERS: ATTEND Nurse Practitioner Family | DX: I87.331 Chronic venous hypertension (idiopathic) with ulcer and inflammation of right lower extremity (principal); L97.212 Non-pressure chronic ulcer of right calf with fat layer exposed; I87.312 Chronic venous hypertension (idiopathic) with ulcer of left lower extremity; L97.321 Non-pressure chronic ulcer of left ankle limited to breakdown of skin; R60.0 Localized edema | CPT/HCPCS: 87070; 87205 ==

== ENCOUNTER 2021-12-03 15:29 | Outpatient (CLI) | payer MEDICARE, OTHER, BC | END 2021-12-03 15:30 | disposition home or self-care (01) | LOC: CSHWCC 15:29 | PROVIDERS: ATTEND Nurse Practitioner Family | DX: I87.331 Chronic venous hypertension (idiopathic) with ulcer and inflammation of right lower extremity (principal); L97.212 Non-pressure chronic ulcer of right calf with fat layer exposed; I87.312 Chronic venous hypertension (idiopathic) with ulcer of left lower extremity; L97.321 Non-pressure chronic ulcer of left ankle limited to breakdown of skin; R60.0 Localized edema ==

== ENCOUNTER 2021-12-17 15:38 | Outpatient (CLI) | payer BC, MEDICARE | END 2021-12-17 15:39 | disposition home or self-care (01) | LOC: CSHWCC 15:38 | PROVIDERS: ATTEND Nurse Practitioner Family | DX: I87.331 Chronic venous hypertension (idiopathic) with ulcer and inflammation of right lower extremity (principal); L97.212 Non-pressure chronic ulcer of right calf with fat layer exposed; I87.312 Chronic venous hypertension (idiopathic) with ulcer of left lower extremity; L97.321 Non-pressure chronic ulcer of left ankle limited to breakdown of skin; R60.0 Localized edema | CPT/HCPCS: 29581; 99213; G0463 ==

== ENCOUNTER 2021-12-24 15:09 | Outpatient (CLI) | payer BC, MEDICARE | END 2021-12-24 15:10 | disposition home or self-care (01) | LOC: CSHWCC 15:09 | PROVIDERS: ATTEND Preventive Medicine Undersea and Hyperbaric Medicine | DX: I87.331 Chronic venous hypertension (idiopathic) with ulcer and inflammation of right lower extremity (principal); L97.212 Non-pressure chronic ulcer of right calf with fat layer exposed; I87.312 Chronic venous hypertension (idiopathic) with ulcer of left lower extremity; L97.321 Non-pressure chronic ulcer of left ankle limited to breakdown of skin; R60.0 Localized edema ==

== ENCOUNTER 2021-12-31 15:10 | Outpatient (CLI) | payer BC, MEDICARE | END 2021-12-31 15:11 | disposition home or self-care (01) | LOC: CSHWCC 15:10 | PROVIDERS: ATTEND Preventive Medicine Undersea and Hyperbaric Medicine | DX: I87.331 Chronic venous hypertension (idiopathic) with ulcer and inflammation of right lower extremity (principal); L97.212 Non-pressure chronic ulcer of right calf with fat layer exposed; I87.312 Chronic venous hypertension (idiopathic) with ulcer of left lower extremity; L97.321 Non-pressure chronic ulcer of left ankle limited to breakdown of skin; R60.0 Localized edema ==

== ENCOUNTER 2022-01-11 14:23 | Outpatient (CLI) | payer BC, MEDICARE | END 2022-01-11 14:24 | disposition home or self-care (01) | LOC: CSHWCC 14:23 | PROVIDERS: ATTEND Preventive Medicine Undersea and Hyperbaric Medicine | DX: I87.331 Chronic venous hypertension (idiopathic) with ulcer and inflammation of right lower extremity (principal); L97.212 Non-pressure chronic ulcer of right calf with fat layer exposed; I87.312 Chronic venous hypertension (idiopathic) with ulcer of left lower extremity; L97.321 Non-pressure chronic ulcer of left ankle limited to breakdown of skin; R60.0 Localized edema | CPT/HCPCS: 29581 ==

== ENCOUNTER 2022-01-14 14:05 | Outpatient (CLI) | payer BC, MEDICARE | END 2022-01-14 14:06 | disposition home or self-care (01) | LOC: CSHWCC 14:05 | PROVIDERS: ATTEND Preventive Medicine Undersea and Hyperbaric Medicine | DX: I87.331 Chronic venous hypertension (idiopathic) with ulcer and inflammation of right lower extremity (principal); L97.212 Non-pressure chronic ulcer of right calf with fat layer exposed; L97.321 Non-pressure chronic ulcer of left ankle limited to breakdown of skin; R60.0 Localized edema | CPT/HCPCS: 29581 ==

== ENCOUNTER 2022-01-27 15:20 | Outpatient (CLI) | payer BC, MEDICARE | END 2022-01-27 15:21 | disposition home or self-care (01) | LOC: CSHWCC 15:20 | PROVIDERS: ATTEND Preventive Medicine Undersea and Hyperbaric Medicine | DX: I87.331 Chronic venous hypertension (idiopathic) with ulcer and inflammation of right lower extremity (principal); L97.212 Non-pressure chronic ulcer of right calf with fat layer exposed; I87.312 Chronic venous hypertension (idiopathic) with ulcer of left lower extremity; L97.321 Non-pressure chronic ulcer of left ankle limited to breakdown of skin; R60.0 Localized edema ==

== ENCOUNTER 2022-02-04 15:05 | Outpatient (CLI) | payer BC, MEDICARE | END 2022-02-04 15:06 | disposition home or self-care (01) | LOC: CSHWCC 15:05 | PROVIDERS: ATTEND Preventive Medicine Undersea and Hyperbaric Medicine | DX: I87.331 Chronic venous hypertension (idiopathic) with ulcer and inflammation of right lower extremity (principal); L97.212 Non-pressure chronic ulcer of right calf with fat layer exposed; I87.312 Chronic venous hypertension (idiopathic) with ulcer of left lower extremity; L97.321 Non-pressure chronic ulcer of left ankle limited to breakdown of skin; R60.0 Localized edema ==

== ENCOUNTER 2022-02-15 11:20 | Outpatient (CLI) | payer BC, MEDICARE | END 2022-02-15 11:21 | disposition home or self-care (01) | LOC: CSHWCC 11:20 | PROVIDERS: ATTEND Nurse Practitioner Family | DX: I87.312 Chronic venous hypertension (idiopathic) with ulcer of left lower extremity (principal); L97.321 Non-pressure chronic ulcer of left ankle limited to breakdown of skin; R60.0 Localized edema ==

== ENCOUNTER 2022-02-22 14:34 | Outpatient (CLI) | payer BC, MEDICARE | END 2022-02-22 14:35 | disposition home or self-care (01) | LOC: CSHWCC 14:34 | PROVIDERS: ATTEND Nurse Practitioner Family | DX: I87.312 Chronic venous hypertension (idiopathic) with ulcer of left lower extremity (principal); L97.321 Non-pressure chronic ulcer of left ankle limited to breakdown of skin; R60.0 Localized edema | CPT/HCPCS: 29581 ==

== ENCOUNTER 2022-03-01 15:10 | Outpatient (CLI) | payer BC, MEDICARE | END 2022-03-01 15:11 | disposition home or self-care (01) | LOC: CSHWCC 15:10 | PROVIDERS: ATTEND Nurse Practitioner Family | DX: R60.0 Localized edema (principal) | CPT/HCPCS: 99212; G0463 ==

== ENCOUNTER 2022-03-16 15:33 | Outpatient (CLI) | payer BC, MEDICARE | END 2022-03-16 15:34 | disposition home or self-care (01) | LOC: CSHWCC 15:33 | PROVIDERS: ATTEND Nurse Practitioner Family | DX: I87.312 Chronic venous hypertension (idiopathic) with ulcer of left lower extremity (principal); L97.321 Non-pressure chronic ulcer of left ankle limited to breakdown of skin; R60.0 Localized edema | CPT/HCPCS: 29581 ==

== ENCOUNTER 2022-03-23 15:04 | Outpatient (CLI) | payer BC, MEDICARE | END 2022-03-23 15:05 | disposition home or self-care (01) | LOC: CSHWCC 15:04 | PROVIDERS: ATTEND Nurse Practitioner Family | DX: I87.312 Chronic venous hypertension (idiopathic) with ulcer of left lower extremity (principal); L97.321 Non-pressure chronic ulcer of left ankle limited to breakdown of skin; R60.0 Localized edema | CPT/HCPCS: 29581 ==

== ENCOUNTER 2022-03-30 12:12 | Outpatient (CLI) | payer BC, MEDICARE | END 2022-03-30 12:13 | disposition home or self-care (01) | LOC: CSHWCC 12:12 | PROVIDERS: ATTEND Nurse Practitioner Family | DX: I87.312 Chronic venous hypertension (idiopathic) with ulcer of left lower extremity (principal); L97.321 Non-pressure chronic ulcer of left ankle limited to breakdown of skin; R60.0 Localized edema ==

== ENCOUNTER 2022-04-06 15:14 | Outpatient (CLI) | payer BC, MEDICARE | END 2022-04-06 15:15 | disposition home or self-care (01) | LOC: CSHWCC 15:14 | PROVIDERS: ATTEND Nurse Practitioner Family | DX: I87.312 Chronic venous hypertension (idiopathic) with ulcer of left lower extremity (principal); L97.321 Non-pressure chronic ulcer of left ankle limited to breakdown of skin; R60.0 Localized edema | CPT/HCPCS: 29581; 87070; 87077; 87205 ==

== ENCOUNTER 2022-04-14 15:12 | Outpatient (CLI) | payer BC, MEDICARE | END 2022-04-14 15:13 | disposition home or self-care (01) | LOC: CSHWCC 15:12 | PROVIDERS: ATTEND Nurse Practitioner Family | DX: I87.312 Chronic venous hypertension (idiopathic) with ulcer of left lower extremity (principal); L97.321 Non-pressure chronic ulcer of left ankle limited to breakdown of skin; R60.0 Localized edema ==

== ENCOUNTER 2022-04-28 14:39 | Outpatient (CLI) | payer BC, MEDICARE | END 2022-04-28 14:40 | disposition home or self-care (01) | LOC: CSHWCC 14:39 | PROVIDERS: ATTEND Nurse Practitioner Family | DX: I87.312 Chronic venous hypertension (idiopathic) with ulcer of left lower extremity (principal); L97.321 Non-pressure chronic ulcer of left ankle limited to breakdown of skin; R60.0 Localized edema | CPT/HCPCS: 29581 ==

== ENCOUNTER 2022-05-05 14:45 | Outpatient (CLI) | payer BC, MEDICARE | END 2022-05-05 14:46 | disposition home or self-care (01) | LOC: CSHWCC 14:45 | PROVIDERS: ATTEND Nurse Practitioner Family | DX: I87.312 Chronic venous hypertension (idiopathic) with ulcer of left lower extremity (principal); L97.321 Non-pressure chronic ulcer of left ankle limited to breakdown of skin; R60.0 Localized edema | CPT/HCPCS: 29581 ==

== ENCOUNTER 2022-05-12 08:03 | Outpatient (CLI) | payer BC, MEDICARE | END 2022-05-12 08:04 | disposition home or self-care (01) | LOC: CSHWCC 08:03 | PROVIDERS: ATTEND Nurse Practitioner Family | DX: R60.0 Localized edema (principal) | CPT/HCPCS: 99213; G0463 ==

== ENCOUNTER 2022-05-26 15:34 | Outpatient (CLI) | payer BC, MEDICARE, OTHER | END 2022-05-26 15:35 | disposition home or self-care (01) | LOC: CSHWCC 15:34 | PROVIDERS: ATTEND Nurse Practitioner Family | DX: I87.312 Chronic venous hypertension (idiopathic) with ulcer of left lower extremity (principal); L97.321 Non-pressure chronic ulcer of left ankle limited to breakdown of skin; R60.0 Localized edema ==

== ENCOUNTER 2022-06-02 15:20 | Outpatient (CLI) | payer MEDICARE, BC | END 2022-06-02 15:21 | disposition home or self-care (01) | LOC: CSHWCC 15:20 | PROVIDERS: ATTEND Nurse Practitioner Family | DX: I87.312 Chronic venous hypertension (idiopathic) with ulcer of left lower extremity (principal); L97.321 Non-pressure chronic ulcer of left ankle limited to breakdown of skin; R60.0 Localized edema ==

== ENCOUNTER 2022-06-09 15:31 | Outpatient (CLI) | payer BC, MEDICARE, OTHER | END 2022-06-09 15:32 | disposition home or self-care (01) | LOC: CSHWCC 15:31 | PROVIDERS: ATTEND Nurse Practitioner Family | DX: I87.312 Chronic venous hypertension (idiopathic) with ulcer of left lower extremity (principal); L97.321 Non-pressure chronic ulcer of left ankle limited to breakdown of skin; R60.0 Localized edema | CPT/HCPCS: 29581 ==

== ENCOUNTER 2022-06-16 15:25 | Outpatient (CLI) | payer BC, MEDICARE, OTHER | END 2022-06-16 15:26 | disposition home or self-care (01) | LOC: CSHWCC 15:25 | PROVIDERS: ATTEND Nurse Practitioner Family | DX: I87.312 Chronic venous hypertension (idiopathic) with ulcer of left lower extremity (principal); L97.321 Non-pressure chronic ulcer of left ankle limited to breakdown of skin; R60.0 Localized edema | CPT/HCPCS: 29581; 99212; G0463 ==

== ENCOUNTER 2022-06-23 09:27 | Outpatient (CLI) | payer OTHER, BC, MEDICARE | END 2022-06-23 09:28 | disposition home or self-care (01) | LOC: CSHWCC 09:27 | PROVIDERS: ATTEND Nurse Practitioner Family | DX: I87.312 Chronic venous hypertension (idiopathic) with ulcer of left lower extremity (principal); L97.321 Non-pressure chronic ulcer of left ankle limited to breakdown of skin; R60.0 Localized edema | CPT/HCPCS: 29581 ==

== ENCOUNTER 2022-06-30 15:30 | Outpatient (CLI) | payer BC, MEDICARE, OTHER | END 2022-06-30 15:31 | disposition home or self-care (01) | LOC: CSHWCC 15:30 | PROVIDERS: ATTEND Nurse Practitioner Family | DX: I87.312 Chronic venous hypertension (idiopathic) with ulcer of left lower extremity (principal); L97.321 Non-pressure chronic ulcer of left ankle limited to breakdown of skin; R60.0 Localized edema | CPT/HCPCS: 29581 ==

== ENCOUNTER 2022-07-06 14:02 | Outpatient (CLI) | payer BC, MEDICARE, OTHER | END 2022-07-06 14:03 | disposition home or self-care (01) | LOC: CSHWCC 14:02 | PROVIDERS: ATTEND Nurse Practitioner Family | DX: I87.312 Chronic venous hypertension (idiopathic) with ulcer of left lower extremity (principal); L97.321 Non-pressure chronic ulcer of left ankle limited to breakdown of skin; R60.0 Localized edema | CPT/HCPCS: 29581 ==

== ENCOUNTER 2022-07-13 11:31 | Outpatient (CLI) | payer BC, MEDICARE, OTHER | END 2022-07-13 11:32 | disposition home or self-care (01) | LOC: CSHWCC 11:31 | PROVIDERS: ATTEND Nurse Practitioner Family | DX: I87.312 Chronic venous hypertension (idiopathic) with ulcer of left lower extremity (principal); L97.321 Non-pressure chronic ulcer of left ankle limited to breakdown of skin ==

== ENCOUNTER 2022-07-19 08:31 | Outpatient (CLI) | payer BC, MEDICARE, OTHER | END 2022-07-19 08:32 | disposition home or self-care (01) | LOC: CSHWCC 08:31 | PROVIDERS: ATTEND Nurse Practitioner Family | DX: I87.312 Chronic venous hypertension (idiopathic) with ulcer of left lower extremity (principal); L97.321 Non-pressure chronic ulcer of left ankle limited to breakdown of skin; R60.0 Localized edema | CPT/HCPCS: 29581 ==

== ENCOUNTER 2022-07-28 14:42 | Outpatient (CLI) | payer BC, MEDICARE, OTHER | END 2022-07-28 14:43 | disposition home or self-care (01) | LOC: CSHWCC 14:42 | PROVIDERS: ATTEND Nurse Practitioner Family | DX: I87.312 Chronic venous hypertension (idiopathic) with ulcer of left lower extremity (principal); L97.321 Non-pressure chronic ulcer of left ankle limited to breakdown of skin; R60.0 Localized edema ==

== ENCOUNTER 2022-08-04 15:23 | Outpatient (CLI) | payer BC, MEDICARE, OTHER | END 2022-08-04 15:24 | disposition home or self-care (01) | LOC: CSHWCC 15:23 | PROVIDERS: ATTEND Nurse Practitioner Family | DX: R60.0 Localized edema (principal) ==

== ENCOUNTER 2022-08-11 15:36 | Outpatient (CLI) | payer OTHER, BC, MEDICARE | END 2022-08-11 15:37 | disposition home or self-care (01) | LOC: CSHWCC 15:36 | PROVIDERS: ATTEND Nurse Practitioner Family | DX: I87.312 Chronic venous hypertension (idiopathic) with ulcer of left lower extremity (principal); L97.321 Non-pressure chronic ulcer of left ankle limited to breakdown of skin; R60.0 Localized edema ==

== ENCOUNTER 2022-08-19 08:40 | Outpatient (CLI) | payer OTHER, BC, MEDICARE | END 2022-08-19 08:41 | disposition home or self-care (01) | LOC: CSHWCC 08:40 | PROVIDERS: ATTEND Nurse Practitioner Family | DX: R60.0 Localized edema (principal); I87.312 Chronic venous hypertension (idiopathic) with ulcer of left lower extremity; L97.321 Non-pressure chronic ulcer of left ankle limited to breakdown of skin | CPT/HCPCS: 29581 ==

== ENCOUNTER 2022-09-30 13:00 | Outpatient (CLI) | payer BC, MEDICARE, OTHER | END 2022-09-30 13:01 | disposition home or self-care (01) | LOC: CSHWCC 13:00 | PROVIDERS: ATTEND Nurse Practitioner Family | DX: R60.0 Localized edema (principal); I87.312 Chronic venous hypertension (idiopathic) with ulcer of left lower extremity; L97.321 Non-pressure chronic ulcer of left ankle limited to breakdown of skin | CPT/HCPCS: 29581 ==

== ENCOUNTER 2022-10-13 14:53 | Outpatient (CLI) | payer BC, MEDICARE, OTHER | END 2022-10-13 14:54 | disposition home or self-care (01) | LOC: CSHWCC 14:53 | PROVIDERS: ATTEND Nurse Practitioner Family | DX: I87.312 Chronic venous hypertension (idiopathic) with ulcer of left lower extremity (principal); L97.321 Non-pressure chronic ulcer of left ankle limited to breakdown of skin; R60.0 Localized edema | CPT/HCPCS: 29581; 97597; 99213; G0463 ==

== ENCOUNTER 2022-10-27 13:55 | Outpatient (CLI) | payer BC, MEDICARE, OTHER | END 2022-10-27 13:56 | disposition home or self-care (01) | LOC: CSHWCC 13:55 | PROVIDERS: ATTEND Nurse Practitioner Family | DX: R60.0 Localized edema (principal); I87.312 Chronic venous hypertension (idiopathic) with ulcer of left lower extremity; L97.321 Non-pressure chronic ulcer of left ankle limited to breakdown of skin | CPT/HCPCS: 29581; 99211; G0463 ==

== ENCOUNTER 2022-11-04 15:35 | Outpatient (CLI) | payer BC, MEDICARE, OTHER | END 2022-11-04 15:36 | disposition home or self-care (01) | LOC: CSHWCC 15:35 | PROVIDERS: ATTEND Nurse Practitioner Family | DX: R60.0 Localized edema (principal); I87.312 Chronic venous hypertension (idiopathic) with ulcer of left lower extremity; L97.321 Non-pressure chronic ulcer of left ankle limited to breakdown of skin | CPT/HCPCS: 29581; 97597 ==

== ENCOUNTER 2022-11-16 13:43 | Outpatient (CLI) | payer BC, MEDICARE | END 2022-11-16 13:44 | disposition home or self-care (01) | LOC: CSHWCC 13:43 | PROVIDERS: ATTEND Nurse Practitioner Family | DX: R60.0 Localized edema (principal); I87.312 Chronic venous hypertension (idiopathic) with ulcer of left lower extremity; L97.321 Non-pressure chronic ulcer of left ankle limited to breakdown of skin; I87.332 Chronic venous hypertension (idiopathic) with ulcer and inflammation of left lower extremity; L97.822 Non-pressure chronic ulcer of other part of left lower leg with fat layer exposed | CPT/HCPCS: 29581; 87070; 87077; 87186; 87205; 97597 ==

== ENCOUNTER 2022-11-19 01:00 | Outpatient (CLI) | payer BC, MEDICARE | END 2022-11-19 01:01 | disposition home or self-care (01) | LOC: CSHWCC 01:00 | PROVIDERS: ATTEND Nurse Practitioner Family | DX: I87.332 Chronic venous hypertension (idiopathic) with ulcer and inflammation of left lower extremity (principal); L97.822 Non-pressure chronic ulcer of other part of left lower leg with fat layer exposed; I87.312 Chronic venous hypertension (idiopathic) with ulcer of left lower extremity; L97.321 Non-pressure chronic ulcer of left ankle limited to breakdown of skin; R60.0 Localized edema | CPT/HCPCS: 29581 ==

== ENCOUNTER 2022-11-22 10:43 | Outpatient (CLI) | payer BC, MEDICARE, OTHER | END 2022-11-22 10:44 | disposition home or self-care (01) | LOC: CSHWCC 10:43 | PROVIDERS: ATTEND Nurse Practitioner Family | DX: I87.312 Chronic venous hypertension (idiopathic) with ulcer of left lower extremity (principal); I87.332 Chronic venous hypertension (idiopathic) with ulcer and inflammation of left lower extremity; L97.822 Non-pressure chronic ulcer of other part of left lower leg with fat layer exposed; L97.321 Non-pressure chronic ulcer of left ankle limited to breakdown of skin; R60.0 Localized edema | CPT/HCPCS: 29581 ==

== ENCOUNTER 2022-11-26 11:51 | Outpatient (CLI) | payer BC, MEDICARE, OTHER | END 2022-11-26 11:52 | disposition home or self-care (01) | LOC: CSHWCC 11:51 | PROVIDERS: ATTEND Nurse Practitioner Family | DX: I87.332 Chronic venous hypertension (idiopathic) with ulcer and inflammation of left lower extremity (principal); L97.822 Non-pressure chronic ulcer of other part of left lower leg with fat layer exposed; L97.321 Non-pressure chronic ulcer of left ankle limited to breakdown of skin | CPT/HCPCS: 29581; 97597; 97598 ==

== ENCOUNTER 2022-12-03 12:51 | Outpatient (CLI) | payer BC, MEDICARE | END 2022-12-03 12:52 | disposition home or self-care (01) | LOC: CSHWCC 12:51 | PROVIDERS: ATTEND Nurse Practitioner Family | DX: R60.0 Localized edema (principal); I87.332 Chronic venous hypertension (idiopathic) with ulcer and inflammation of left lower extremity; L97.822 Non-pressure chronic ulcer of other part of left lower leg with fat layer exposed | CPT/HCPCS: 29581 ==

== ENCOUNTER 2022-12-06 15:49 | Outpatient (CLI) | payer BC, MEDICARE | END 2022-12-06 15:50 | disposition home or self-care (01) | LOC: CSHWCC 15:49 | PROVIDERS: ATTEND Nurse Practitioner Family | DX: R60.0 Localized edema (principal); I87.312 Chronic venous hypertension (idiopathic) with ulcer of left lower extremity; L97.321 Non-pressure chronic ulcer of left ankle limited to breakdown of skin; I87.332 Chronic venous hypertension (idiopathic) with ulcer and inflammation of left lower extremity; L97.822 Non-pressure chronic ulcer of other part of left lower leg with fat layer exposed | CPT/HCPCS: 29581 ==

== ENCOUNTER 2022-12-09 15:47 | Outpatient (CLI) | payer BC, MEDICARE | END 2022-12-09 15:48 | disposition home or self-care (01) | LOC: CSHWCC 15:47 | PROVIDERS: ATTEND Nurse Practitioner Family | DX: R60.0 Localized edema (principal); I87.332 Chronic venous hypertension (idiopathic) with ulcer and inflammation of left lower extremity; L97.822 Non-pressure chronic ulcer of other part of left lower leg with fat layer exposed | CPT/HCPCS: 29581 ==

== ENCOUNTER 2022-12-15 09:41 | Outpatient (CLI) | payer BC, MEDICARE | END 2022-12-15 09:42 | disposition home or self-care (01) | LOC: CSHWCC 09:41 | PROVIDERS: ATTEND Nurse Practitioner Family | DX: R60.0 Localized edema (principal); I87.332 Chronic venous hypertension (idiopathic) with ulcer and inflammation of left lower extremity; L97.822 Non-pressure chronic ulcer of other part of left lower leg with fat layer exposed | CPT/HCPCS: 29581 ==

== ENCOUNTER 2022-12-23 08:42 | Outpatient (CLI) | payer BC, MEDICARE | END 2022-12-23 08:43 | disposition home or self-care (01) | LOC: CSHWCC 08:42 | PROVIDERS: ATTEND Nurse Practitioner Family | DX: I87.332 Chronic venous hypertension (idiopathic) with ulcer and inflammation of left lower extremity (principal); L97.822 Non-pressure chronic ulcer of other part of left lower leg with fat layer exposed; R60.0 Localized edema | CPT/HCPCS: 29581 ==

== ENCOUNTER 2022-12-30 09:36 | Outpatient (CLI) | payer BC, MEDICARE | END 2022-12-30 09:37 | disposition home or self-care (01) | LOC: CSHWCC 09:36 | PROVIDERS: ATTEND Nurse Practitioner Family | DX: I87.332 Chronic venous hypertension (idiopathic) with ulcer and inflammation of left lower extremity (principal); L97.822 Non-pressure chronic ulcer of other part of left lower leg with fat layer exposed; R60.0 Localized edema | CPT/HCPCS: 29581 ==

== ENCOUNTER 2023-01-18 14:03 | Outpatient (CLI) | payer MEDICARE, BC | END 2023-01-18 14:04 | disposition home or self-care (01) | LOC: CSHWCC 14:03 | PROVIDERS: ATTEND Preventive Medicine Undersea and Hyperbaric Medicine | DX: I87.332 Chronic venous hypertension (idiopathic) with ulcer and inflammation of left lower extremity (principal); L97.822 Non-pressure chronic ulcer of other part of left lower leg with fat layer exposed; L97.321 Non-pressure chronic ulcer of left ankle limited to breakdown of skin | CPT/HCPCS: 29581; 97597 ==

== ENCOUNTER 2023-01-25 15:56 | Outpatient (CLI) | payer BC, MEDICARE | END 2023-01-25 15:57 | disposition home or self-care (01) | LOC: CSHWCC 15:56 | PROVIDERS: ATTEND Physician Assistant | DX: I87.332 Chronic venous hypertension (idiopathic) with ulcer and inflammation of left lower extremity (principal); L97.822 Non-pressure chronic ulcer of other part of left lower leg with fat layer exposed; L97.321 Non-pressure chronic ulcer of left ankle limited to breakdown of skin | CPT/HCPCS: 11042; 97602 ==

== ENCOUNTER 2023-02-02 14:24 | Outpatient (CLI) | payer BC, MEDICARE | END 2023-02-02 14:25 | disposition home or self-care (01) | LOC: CSHWCC 14:24 | PROVIDERS: ATTEND Preventive Medicine Undersea and Hyperbaric Medicine | DX: I87.332 Chronic venous hypertension (idiopathic) with ulcer and inflammation of left lower extremity (principal); L97.822 Non-pressure chronic ulcer of other part of left lower leg with fat layer exposed; L97.312 Non-pressure chronic ulcer of right ankle with fat layer exposed; L97.321 Non-pressure chronic ulcer of left ankle limited to breakdown of skin | CPT/HCPCS: 97602 ==

== ENCOUNTER 2023-02-14 11:07 | Outpatient (CLI) | payer BC, MEDICARE, OTHER | END 2023-02-14 11:08 | disposition home or self-care (01) | LOC: CSHWCC 11:07 | PROVIDERS: ATTEND Physician Assistant | DX: I87.313 Chronic venous hypertension (idiopathic) with ulcer of bilateral lower extremity (principal); E55.9 Vitamin D deficiency, unspecified | CPT/HCPCS: 29581; 97602 ==

== ENCOUNTER 2023-02-24 10:19 | Outpatient (CLI) | payer BC, MEDICARE | END 2023-02-24 10:20 | disposition home or self-care (01) | LOC: CSHWCC 10:19 | PROVIDERS: ATTEND Physician Assistant | DX: I87.313 Chronic venous hypertension (idiopathic) with ulcer of bilateral lower extremity (principal); E55.9 Vitamin D deficiency, unspecified; L97.929 Non-pressure chronic ulcer of unspecified part of left lower leg with unspecified severity; L97.919 Non-pressure chronic ulcer of unspecified part of right lower leg with unspecified severity | CPT/HCPCS: 97597 ==

== ENCOUNTER 2023-03-02 11:06 | Outpatient (CLI) | payer BC, MEDICARE | END 2023-03-02 11:07 | disposition home or self-care (01) | LOC: CSHWCC 11:06 | PROVIDERS: ATTEND Physician Assistant | DX: I87.313 Chronic venous hypertension (idiopathic) with ulcer of bilateral lower extremity (principal); E55.9 Vitamin D deficiency, unspecified | CPT/HCPCS: 29581 ==

== ENCOUNTER 2023-03-07 15:00 | Outpatient (CLI) | payer BC, MEDICARE | END 2023-03-07 15:01 | disposition home or self-care (01) | LOC: CSHWCC 15:00 | PROVIDERS: ATTEND Physician Assistant | DX: I87.313 Chronic venous hypertension (idiopathic) with ulcer of bilateral lower extremity (principal); E55.9 Vitamin D deficiency, unspecified | CPT/HCPCS: 29581 ==

== ENCOUNTER 2023-03-14 03:00 | Outpatient (CLI) | payer BC, MEDICARE | END 2023-03-14 03:01 | disposition home or self-care (01) | LOC: CSHWCC 03:00 | PROVIDERS: ATTEND Preventive Medicine Undersea and Hyperbaric Medicine | DX: I87.313 Chronic venous hypertension (idiopathic) with ulcer of bilateral lower extremity (principal); L97.919 Non-pressure chronic ulcer of unspecified part of right lower leg with unspecified severity; L97.929 Non-pressure chronic ulcer of unspecified part of left lower leg with unspecified severity; E55.9 Vitamin D deficiency, unspecified | CPT/HCPCS: 29581 ==

== ENCOUNTER 2023-03-22 10:11 | Outpatient (CLI) | payer BC, MEDICARE | END 2023-03-22 10:12 | disposition home or self-care (01) | LOC: CSHWCC 10:11 | PROVIDERS: ATTEND Physician Assistant | DX: I87.313 Chronic venous hypertension (idiopathic) with ulcer of bilateral lower extremity (principal); L97.919 Non-pressure chronic ulcer of unspecified part of right lower leg with unspecified severity; L97.929 Non-pressure chronic ulcer of unspecified part of left lower leg with unspecified severity; E55.9 Vitamin D deficiency, unspecified | CPT/HCPCS: 97597 ==

== ENCOUNTER 2023-03-29 11:15 | Outpatient (CLI) | payer BC, MEDICARE | END 2023-03-29 11:16 | disposition home or self-care (01) | LOC: CSHWCC 11:15 | PROVIDERS: ATTEND Physician Assistant | DX: I87.313 Chronic venous hypertension (idiopathic) with ulcer of bilateral lower extremity (principal); L97.919 Non-pressure chronic ulcer of unspecified part of right lower leg with unspecified severity; L97.929 Non-pressure chronic ulcer of unspecified part of left lower leg with unspecified severity; E55.9 Vitamin D deficiency, unspecified | CPT/HCPCS: 29581 ==

== ENCOUNTER 2023-05-04 14:22 | Outpatient (CLI) | payer BC, MEDICARE | END 2023-05-04 14:23 | disposition home or self-care (01) | LOC: CSHWCC 14:22 | PROVIDERS: ATTEND Preventive Medicine Undersea and Hyperbaric Medicine | DX: I87.313 Chronic venous hypertension (idiopathic) with ulcer of bilateral lower extremity (principal); E55.9 Vitamin D deficiency, unspecified | CPT/HCPCS: 29581 ==

== ENCOUNTER 2023-05-11 15:20 | Outpatient (CLI) | payer BC, MEDICARE | END 2023-05-11 15:21 | disposition home or self-care (01) | LOC: CSHWCC 15:20 | PROVIDERS: ATTEND Physician Assistant | DX: I87.313 Chronic venous hypertension (idiopathic) with ulcer of bilateral lower extremity (principal); L97.919 Non-pressure chronic ulcer of unspecified part of right lower leg with unspecified severity; L97.929 Non-pressure chronic ulcer of unspecified part of left lower leg with unspecified severity; E55.9 Vitamin D deficiency, unspecified | CPT/HCPCS: 29581 ==

== ENCOUNTER 2023-05-16 15:19 | Outpatient (CLI) | payer BC, OTHER, MEDICARE | END 2023-05-16 15:20 | disposition home or self-care (01) | LOC: CSHWCC 15:19 | PROVIDERS: ATTEND Physician Assistant | DX: I87.313 Chronic venous hypertension (idiopathic) with ulcer of bilateral lower extremity (principal); L97.929 Non-pressure chronic ulcer of unspecified part of left lower leg with unspecified severity; L97.919 Non-pressure chronic ulcer of unspecified part of right lower leg with unspecified severity; E55.9 Vitamin D deficiency, unspecified | CPT/HCPCS: 29581; 97597 ==

== ENCOUNTER 2023-05-23 15:35 | Outpatient (CLI) | payer BC, MEDICARE | END 2023-05-23 15:36 | disposition home or self-care (01) | LOC: CSHWCC 15:35 | PROVIDERS: ATTEND Nurse Practitioner Family | DX: I87.313 Chronic venous hypertension (idiopathic) with ulcer of bilateral lower extremity (principal); L97.919 Non-pressure chronic ulcer of unspecified part of right lower leg with unspecified severity; L97.929 Non-pressure chronic ulcer of unspecified part of left lower leg with unspecified severity; E55.9 Vitamin D deficiency, unspecified | CPT/HCPCS: 29581 ==

== ENCOUNTER 2023-05-30 10:14 | Outpatient (CLI) | payer BC, MEDICARE | END 2023-05-30 10:15 | disposition home or self-care (01) | LOC: CSHWCC 10:14 | PROVIDERS: ATTEND Nurse Practitioner Family | DX: I87.313 Chronic venous hypertension (idiopathic) with ulcer of bilateral lower extremity (principal); E55.9 Vitamin D deficiency, unspecified; L97.929 Non-pressure chronic ulcer of unspecified part of left lower leg with unspecified severity; L97.919 Non-pressure chronic ulcer of unspecified part of right lower leg with unspecified severity | CPT/HCPCS: 11042; 11045 ==

== ENCOUNTER 2023-06-07 15:29 | Outpatient (CLI) | payer BC, MEDICARE, OTHER | END 2023-06-07 15:30 | disposition home or self-care (01) | LOC: CSHWCC 15:29 | PROVIDERS: ATTEND Nurse Practitioner Family | DX: I87.313 Chronic venous hypertension (idiopathic) with ulcer of bilateral lower extremity (principal); L97.919 Non-pressure chronic ulcer of unspecified part of right lower leg with unspecified severity; L97.929 Non-pressure chronic ulcer of unspecified part of left lower leg with unspecified severity; E55.9 Vitamin D deficiency, unspecified | CPT/HCPCS: 11042 ==

== ENCOUNTER 2023-06-14 16:23 | Outpatient (CLI) | payer BC, MEDICARE | END 2023-06-14 16:24 | disposition home or self-care (01) | LOC: CSHWCC 16:23 | PROVIDERS: ATTEND Nurse Practitioner Family | DX: I87.313 Chronic venous hypertension (idiopathic) with ulcer of bilateral lower extremity (principal); L97.212 Non-pressure chronic ulcer of right calf with fat layer exposed; E55.9 Vitamin D deficiency, unspecified | CPT/HCPCS: 11042 ==

== ENCOUNTER 2023-06-21 15:35 | Outpatient (CLI) | payer MEDICARE, BC | END 2023-06-21 15:36 | disposition home or self-care (01) | LOC: CSHWCC 15:35 | PROVIDERS: ATTEND Nurse Practitioner Family | DX: I87.313 Chronic venous hypertension (idiopathic) with ulcer of bilateral lower extremity (principal); L97.212 Non-pressure chronic ulcer of right calf with fat layer exposed; E55.9 Vitamin D deficiency, unspecified | CPT/HCPCS: 11042; 87070; 87077; 87186; 87205; 99213; G0463 ==

== ENCOUNTER 2023-06-27 | Outpatient (CLI) | payer BC, MEDICARE | END 2023-06-27 14:27 | disposition home or self-care (01) | DX: I87.313 Chronic venous hypertension (idiopathic) with ulcer of bilateral lower extremity (principal); L97.212 Non-pressure chronic ulcer of right calf with fat layer exposed; L97.929 Non-pressure chronic ulcer of unspecified part of left lower leg with unspecified severity; E55.9 Vitamin D deficiency, unspecified ==

== ENCOUNTER 2023-07-12 15:09 | Outpatient (CLI) | payer BC, MEDICARE | END 2023-07-12 15:10 | disposition home or self-care (01) | LOC: CSHWCC 15:09 | PROVIDERS: ATTEND Nurse Practitioner Family | DX: I87.313 Chronic venous hypertension (idiopathic) with ulcer of bilateral lower extremity (principal); L97.212 Non-pressure chronic ulcer of right calf with fat layer exposed; E55.9 Vitamin D deficiency, unspecified | CPT/HCPCS: 11042 ==

== ENCOUNTER 2023-08-26 10:52 | Outpatient (CLI) | payer MEDICARE, BC | END 2023-08-26 10:53 | disposition home or self-care (01) | LOC: CSHWCC 10:52 | PROVIDERS: ATTEND Nurse Practitioner Family | DX: I87.313 Chronic venous hypertension (idiopathic) with ulcer of bilateral lower extremity (principal); L97.212 Non-pressure chronic ulcer of right calf with fat layer exposed; E55.9 Vitamin D deficiency, unspecified | CPT/HCPCS: 11042; 11045 ==

== ENCOUNTER 2023-09-08 11:16 | Outpatient (CLI) | payer MEDICARE, BC | END 2023-09-08 11:17 | disposition home or self-care (01) | LOC: CSHWCC 11:16 | PROVIDERS: ATTEND Nurse Practitioner Family | DX: I87.313 Chronic venous hypertension (idiopathic) with ulcer of bilateral lower extremity (principal); L97.212 Non-pressure chronic ulcer of right calf with fat layer exposed; L97.929 Non-pressure chronic ulcer of unspecified part of left lower leg with unspecified severity; E55.9 Vitamin D deficiency, unspecified | CPT/HCPCS: 87070; 87077; 87186; 87205 ==

== ENCOUNTER 2023-09-29 15:16 | Outpatient (CLI) | payer MEDICARE, BC | END 2023-09-29 15:17 | disposition home or self-care (01) | LOC: CSHWCC 15:16 | PROVIDERS: ATTEND Nurse Practitioner Family | DX: I87.313 Chronic venous hypertension (idiopathic) with ulcer of bilateral lower extremity (principal); L97.212 Non-pressure chronic ulcer of right calf with fat layer exposed; E55.9 Vitamin D deficiency, unspecified | CPT/HCPCS: 11042; 11045 ==

== ENCOUNTER 2023-10-06 15:43 | Outpatient (CLI) | payer MEDICARE, BC | END 2023-10-06 15:44 | disposition home or self-care (01) | LOC: CSHWCC 15:43 | PROVIDERS: ATTEND Preventive Medicine Undersea and Hyperbaric Medicine | DX: I87.313 Chronic venous hypertension (idiopathic) with ulcer of bilateral lower extremity (principal); L97.212 Non-pressure chronic ulcer of right calf with fat layer exposed; L97.929 Non-pressure chronic ulcer of unspecified part of left lower leg with unspecified severity; E55.9 Vitamin D deficiency, unspecified | CPT/HCPCS: 29581 ==

== ENCOUNTER 2023-10-14 13:37 | Outpatient (CLI) | payer BC, MEDICARE | END 2023-10-14 13:38 | disposition home or self-care (01) | LOC: CSHWCC 13:37 | PROVIDERS: ATTEND Nurse Practitioner Family | DX: I87.313 Chronic venous hypertension (idiopathic) with ulcer of bilateral lower extremity (principal); L97.212 Non-pressure chronic ulcer of right calf with fat layer exposed; E55.9 Vitamin D deficiency, unspecified | CPT/HCPCS: 11042 ==

== ENCOUNTER 2023-10-21 15:58 | Outpatient (CLI) | payer MEDICARE | END 2023-10-21 15:59 | disposition home or self-care (01) | LOC: CSHWCC 15:58 | PROVIDERS: ATTEND Nurse Practitioner Family | DX: I87.313 Chronic venous hypertension (idiopathic) with ulcer of bilateral lower extremity (principal); L97.212 Non-pressure chronic ulcer of right calf with fat layer exposed; E55.9 Vitamin D deficiency, unspecified ==

== ENCOUNTER 2023-10-24 15:38 | Outpatient (CLI) | payer BC, MEDICARE | END 2023-10-24 15:39 | disposition home or self-care (01) | LOC: CSHWCC 15:38 | PROVIDERS: ATTEND Nurse Practitioner Family | DX: I87.313 Chronic venous hypertension (idiopathic) with ulcer of bilateral lower extremity (principal); L97.212 Non-pressure chronic ulcer of right calf with fat layer exposed; E55.9 Vitamin D deficiency, unspecified ==

== ENCOUNTER 2023-10-27 11:19 | Outpatient (CLI) | payer BC, MEDICARE | END 2023-10-27 11:20 | disposition home or self-care (01) | LOC: CSHWCC 11:19 | PROVIDERS: ATTEND Nurse Practitioner Family | DX: I87.313 Chronic venous hypertension (idiopathic) with ulcer of bilateral lower extremity (principal); L97.212 Non-pressure chronic ulcer of right calf with fat layer exposed; E55.9 Vitamin D deficiency, unspecified | CPT/HCPCS: 11042 ==

== ENCOUNTER 2023-10-31 15:30 | Outpatient (CLI) | payer BC, MEDICARE | END 2023-10-31 15:31 | disposition home or self-care (01) | LOC: CSHWCC 15:30 | PROVIDERS: ATTEND Nurse Practitioner Family | DX: I87.313 Chronic venous hypertension (idiopathic) with ulcer of bilateral lower extremity (principal); L97.212 Non-pressure chronic ulcer of right calf with fat layer exposed; L97.929 Non-pressure chronic ulcer of unspecified part of left lower leg with unspecified severity; E55.9 Vitamin D deficiency, unspecified | CPT/HCPCS: 11042; 11045 ==

== ENCOUNTER 2023-11-08 09:21 | Outpatient (CLI) | payer MEDICARE | END 2023-11-08 09:22 | disposition home or self-care (01) | LOC: CSHWCC 09:21 | PROVIDERS: ATTEND Nurse Practitioner Family | DX: I87.313 Chronic venous hypertension (idiopathic) with ulcer of bilateral lower extremity (principal); L97.212 Non-pressure chronic ulcer of right calf with fat layer exposed; E55.9 Vitamin D deficiency, unspecified | CPT/HCPCS: 11042 ==

== ENCOUNTER 2023-12-07 15:53 | Outpatient (CLI) | payer MEDICARE | END 2023-12-07 15:54 | disposition home or self-care (01) | LOC: CSHWCC 15:53 | PROVIDERS: ATTEND Nurse Practitioner Family | DX: I87.313 Chronic venous hypertension (idiopathic) with ulcer of bilateral lower extremity (principal); L97.212 Non-pressure chronic ulcer of right calf with fat layer exposed; E55.9 Vitamin D deficiency, unspecified | CPT/HCPCS: 11042 ==

== ENCOUNTER 2023-12-09 12:40 | Outpatient (CLI) | payer MEDICARE | END 2023-12-09 12:41 | disposition home or self-care (01) | LOC: CSHWCC 12:40 | PROVIDERS: ATTEND Nurse Practitioner Family | DX: I87.313 Chronic venous hypertension (idiopathic) with ulcer of bilateral lower extremity (principal); L97.212 Non-pressure chronic ulcer of right calf with fat layer exposed; L97.929 Non-pressure chronic ulcer of unspecified part of left lower leg with unspecified severity; E55.9 Vitamin D deficiency, unspecified | CPT/HCPCS: 29581 ==

== ENCOUNTER 2024-01-06 11:46 | Outpatient (CLI) | payer MEDICARE | END 2024-01-06 11:47 | disposition home or self-care (01) | LOC: CSHWCC 11:46 | PROVIDERS: ATTEND Nurse Practitioner Family | DX: I87.313 Chronic venous hypertension (idiopathic) with ulcer of bilateral lower extremity (principal); L97.212 Non-pressure chronic ulcer of right calf with fat layer exposed; L97.929 Non-pressure chronic ulcer of unspecified part of left lower leg with unspecified severity; E55.9 Vitamin D deficiency, unspecified | CPT/HCPCS: 29581 ==

== ENCOUNTER 2024-01-10 11:37 | Outpatient (CLI) | payer MEDICARE | END 2024-01-10 11:38 | disposition home or self-care (01) | LOC: CSHWCC 11:37 | PROVIDERS: ATTEND Nurse Practitioner Family | DX: I87.313 Chronic venous hypertension (idiopathic) with ulcer of bilateral lower extremity (principal); L97.212 Non-pressure chronic ulcer of right calf with fat layer exposed; L97.929 Non-pressure chronic ulcer of unspecified part of left lower leg with unspecified severity; E55.9 Vitamin D deficiency, unspecified | CPT/HCPCS: 11042 ==

== ENCOUNTER 2024-01-13 15:40 | Outpatient (CLI) | payer MEDICARE | END 2024-01-13 15:41 | disposition home or self-care (01) | LOC: CSHWCC 15:40 | PROVIDERS: ATTEND Nurse Practitioner Family | DX: I87.313 Chronic venous hypertension (idiopathic) with ulcer of bilateral lower extremity (principal); L97.212 Non-pressure chronic ulcer of right calf with fat layer exposed; E55.9 Vitamin D deficiency, unspecified | CPT/HCPCS: 29581 ==

== ENCOUNTER 2024-01-17 14:51 | Outpatient (CLI) | payer MEDICARE | END 2024-01-17 14:52 | disposition home or self-care (01) | LOC: CSHWCC 14:51 | PROVIDERS: ATTEND Nurse Practitioner Family | DX: I87.313 Chronic venous hypertension (idiopathic) with ulcer of bilateral lower extremity (principal); L97.212 Non-pressure chronic ulcer of right calf with fat layer exposed; E55.9 Vitamin D deficiency, unspecified | CPT/HCPCS: 29581 ==

== ENCOUNTER 2024-01-20 12:00 | Outpatient (CLI) | payer MEDICARE | END 2024-01-20 12:01 | disposition home or self-care (01) | LOC: CSHWCC 12:00 | PROVIDERS: ATTEND Nurse Practitioner Family | DX: I87.313 Chronic venous hypertension (idiopathic) with ulcer of bilateral lower extremity (principal); L97.212 Non-pressure chronic ulcer of right calf with fat layer exposed; E55.9 Vitamin D deficiency, unspecified | CPT/HCPCS: 11042 ==

== ENCOUNTER 2024-01-24 15:53 | Outpatient (CLI) | payer MEDICARE | END 2024-01-24 15:54 | disposition home or self-care (01) | LOC: CSHWCC 15:53 | PROVIDERS: ATTEND Nurse Practitioner Family | DX: I87.313 Chronic venous hypertension (idiopathic) with ulcer of bilateral lower extremity (principal); L97.212 Non-pressure chronic ulcer of right calf with fat layer exposed; L97.929 Non-pressure chronic ulcer of unspecified part of left lower leg with unspecified severity; E55.9 Vitamin D deficiency, unspecified | CPT/HCPCS: 11042 ==

== ENCOUNTER 2024-01-27 12:25 | Outpatient (CLI) | payer MEDICARE | END 2024-01-27 12:26 | disposition home or self-care (01) | LOC: CSHWCC 12:25 | PROVIDERS: ATTEND Nurse Practitioner Family | DX: I87.313 Chronic venous hypertension (idiopathic) with ulcer of bilateral lower extremity (principal); L97.212 Non-pressure chronic ulcer of right calf with fat layer exposed; E55.9 Vitamin D deficiency, unspecified | CPT/HCPCS: 99212; G0463 ==

== ENCOUNTER 2024-01-31 09:04 | Outpatient (CLI) | payer MEDICARE | END 2024-01-31 09:05 | disposition home or self-care (01) | LOC: CSHWCC 09:04 | PROVIDERS: ATTEND Nurse Practitioner Family | DX: I87.313 Chronic venous hypertension (idiopathic) with ulcer of bilateral lower extremity (principal); L97.212 Non-pressure chronic ulcer of right calf with fat layer exposed; E55.9 Vitamin D deficiency, unspecified | CPT/HCPCS: 11042 ==

== ENCOUNTER 2024-02-07 15:52 | Outpatient (CLI) | payer MEDICARE | END 2024-02-07 15:53 | disposition home or self-care (01) | LOC: CSHWCC 15:52 | PROVIDERS: ATTEND Nurse Practitioner Family | DX: I87.313 Chronic venous hypertension (idiopathic) with ulcer of bilateral lower extremity (principal); L97.212 Non-pressure chronic ulcer of right calf with fat layer exposed; E55.9 Vitamin D deficiency, unspecified | CPT/HCPCS: 11042; 11045 ==

== ENCOUNTER 2024-02-10 09:36 | Outpatient (CLI) | payer MEDICARE | END 2024-02-10 09:37 | disposition home or self-care (01) | LOC: CSHWCC 09:36 | PROVIDERS: ATTEND Nurse Practitioner Family | DX: I87.313 Chronic venous hypertension (idiopathic) with ulcer of bilateral lower extremity (principal); L97.212 Non-pressure chronic ulcer of right calf with fat layer exposed; E55.9 Vitamin D deficiency, unspecified | CPT/HCPCS: 29581 ==

== ENCOUNTER 2024-02-14 16:43 | Outpatient (CLI) | payer MEDICARE | END 2024-02-14 16:44 | disposition home or self-care (01) | LOC: CSHWCC 16:43 | PROVIDERS: ATTEND Nurse Practitioner Family | DX: I87.313 Chronic venous hypertension (idiopathic) with ulcer of bilateral lower extremity (principal); L97.212 Non-pressure chronic ulcer of right calf with fat layer exposed; L97.929 Non-pressure chronic ulcer of unspecified part of left lower leg with unspecified severity; E55.9 Vitamin D deficiency, unspecified | CPT/HCPCS: 11042; 11045 ==

== ENCOUNTER 2024-02-17 09:21 | Outpatient (CLI) | payer MEDICARE | END 2024-02-17 09:22 | disposition home or self-care (01) | LOC: CSHWCC 09:21 | PROVIDERS: ATTEND Nurse Practitioner Family | DX: I87.313 Chronic venous hypertension (idiopathic) with ulcer of bilateral lower extremity (principal); L97.212 Non-pressure chronic ulcer of right calf with fat layer exposed; L97.929 Non-pressure chronic ulcer of unspecified part of left lower leg with unspecified severity; E55.9 Vitamin D deficiency, unspecified | CPT/HCPCS: 29581 ==

== ENCOUNTER 2024-02-21 15:50 | Outpatient (CLI) | payer MEDICARE | END 2024-02-21 15:51 | disposition home or self-care (01) | LOC: CSHWCC 15:50 | PROVIDERS: ATTEND Nurse Practitioner Family | DX: I87.313 Chronic venous hypertension (idiopathic) with ulcer of bilateral lower extremity (principal); L97.212 Non-pressure chronic ulcer of right calf with fat layer exposed; E55.9 Vitamin D deficiency, unspecified | CPT/HCPCS: 11042 ==

== ENCOUNTER 2024-02-28 16:02 | Outpatient (CLI) | payer MEDICARE | END 2024-02-28 16:03 | disposition home or self-care (01) | LOC: CSHWCC 16:02 | PROVIDERS: ATTEND Nurse Practitioner Family | DX: I87.313 Chronic venous hypertension (idiopathic) with ulcer of bilateral lower extremity (principal); L97.212 Non-pressure chronic ulcer of right calf with fat layer exposed; E55.9 Vitamin D deficiency, unspecified | CPT/HCPCS: 11042 ==

== ENCOUNTER 2024-03-02 09:59 | Outpatient (CLI) | payer MEDICARE | END 2024-03-02 10:00 | disposition home or self-care (01) | LOC: CSHWCC 09:59 | PROVIDERS: ATTEND Nurse Practitioner Family | DX: I87.313 Chronic venous hypertension (idiopathic) with ulcer of bilateral lower extremity (principal); L97.212 Non-pressure chronic ulcer of right calf with fat layer exposed; E55.9 Vitamin D deficiency, unspecified | CPT/HCPCS: 29581 ==

== ENCOUNTER 2024-03-09 10:55 | Outpatient (CLI) | payer MEDICARE | END 2024-03-09 10:56 | disposition home or self-care (01) | LOC: CSHWCC 10:55 | PROVIDERS: ATTEND Nurse Practitioner Family | DX: I87.313 Chronic venous hypertension (idiopathic) with ulcer of bilateral lower extremity (principal); L97.212 Non-pressure chronic ulcer of right calf with fat layer exposed; E55.9 Vitamin D deficiency, unspecified | CPT/HCPCS: 11042 ==

== ENCOUNTER 2024-03-20 08:37 | Outpatient (CLI) | payer MEDICARE | END 2024-03-20 08:38 | disposition home or self-care (01) | LOC: CSHWCC 08:37 | PROVIDERS: ATTEND Nurse Practitioner Family | DX: I87.312 Chronic venous hypertension (idiopathic) with ulcer of left lower extremity (principal); L97.212 Non-pressure chronic ulcer of right calf with fat layer exposed; L97.222 Non-pressure chronic ulcer of left calf with fat layer exposed; L97.312 Non-pressure chronic ulcer of right ankle with fat layer exposed; L97.322 Non-pressure chronic ulcer of left ankle with fat layer exposed; E55.9 Vitamin D deficiency, unspecified | CPT/HCPCS: 11042; G0463; 99212 ==

== ENCOUNTER 2024-03-23 15:33 | Outpatient (CLI) | payer MEDICARE | END 2024-03-23 15:34 | disposition home or self-care (01) | LOC: CSHWCC 15:33 | PROVIDERS: ATTEND Family Medicine | DX: I87.313 Chronic venous hypertension (idiopathic) with ulcer of bilateral lower extremity (principal); L97.212 Non-pressure chronic ulcer of right calf with fat layer exposed; L97.222 Non-pressure chronic ulcer of left calf with fat layer exposed; L97.322 Non-pressure chronic ulcer of left ankle with fat layer exposed; L97.312 Non-pressure chronic ulcer of right ankle with fat layer exposed; E55.9 Vitamin D deficiency, unspecified | CPT/HCPCS: 29581 ==

== ENCOUNTER 2024-04-05 11:08 | Outpatient (CLI) | payer BC, MEDICARE | END 2024-04-05 11:09 | disposition home or self-care (01) | LOC: CSHWCC 11:08 | PROVIDERS: ATTEND Nurse Practitioner Family | DX: I87.313 Chronic venous hypertension (idiopathic) with ulcer of bilateral lower extremity (principal); L97.212 Non-pressure chronic ulcer of right calf with fat layer exposed; L97.222 Non-pressure chronic ulcer of left calf with fat layer exposed; L97.322 Non-pressure chronic ulcer of left ankle with fat layer exposed; L97.312 Non-pressure chronic ulcer of right ankle with fat layer exposed; E55.9 Vitamin D deficiency, unspecified | CPT/HCPCS: 11042; 97597 ==

== ENCOUNTER 2024-04-09 08:11 | Outpatient (CLI) | payer BC, MEDICARE | END 2024-04-09 08:12 | disposition home or self-care (01) | LOC: CSHWCC 08:11 | PROVIDERS: ATTEND Nurse Practitioner Family | DX: I87.313 Chronic venous hypertension (idiopathic) with ulcer of bilateral lower extremity (principal); L97.212 Non-pressure chronic ulcer of right calf with fat layer exposed; L97.222 Non-pressure chronic ulcer of left calf with fat layer exposed; L97.322 Non-pressure chronic ulcer of left ankle with fat layer exposed; L97.312 Non-pressure chronic ulcer of right ankle with fat layer exposed; E55.9 Vitamin D deficiency, unspecified | CPT/HCPCS: 29581 ==

== ENCOUNTER 2024-04-16 14:45 | Outpatient (CLI) | payer MEDICARE | END 2024-04-16 14:46 | disposition home or self-care (01) | LOC: CSHWCC 14:45 | PROVIDERS: ATTEND Nurse Practitioner Family | DX: I87.313 Chronic venous hypertension (idiopathic) with ulcer of bilateral lower extremity (principal); L97.212 Non-pressure chronic ulcer of right calf with fat layer exposed; L97.222 Non-pressure chronic ulcer of left calf with fat layer exposed; L97.322 Non-pressure chronic ulcer of left ankle with fat layer exposed; L97.312 Non-pressure chronic ulcer of right ankle with fat layer exposed; E55.9 Vitamin D deficiency, unspecified | CPT/HCPCS: 29581 ==

== ENCOUNTER 2024-04-19 08:39 | Outpatient (CLI) | payer MEDICARE | END 2024-04-19 08:40 | disposition home or self-care (01) | LOC: CSHWCC 08:39 | PROVIDERS: ATTEND Nurse Practitioner Family | DX: I87.313 Chronic venous hypertension (idiopathic) with ulcer of bilateral lower extremity (principal); L97.222 Non-pressure chronic ulcer of left calf with fat layer exposed; L97.322 Non-pressure chronic ulcer of left ankle with fat layer exposed; E55.9 Vitamin D deficiency, unspecified | CPT/HCPCS: 11042 ==

== ENCOUNTER 2024-04-26 09:24 | Outpatient (CLI) | payer MEDICARE | END 2024-04-26 09:25 | disposition home or self-care (01) | LOC: CSHWCC 09:24 | PROVIDERS: ATTEND Nurse Practitioner Family | DX: I87.313 Chronic venous hypertension (idiopathic) with ulcer of bilateral lower extremity (principal); L97.222 Non-pressure chronic ulcer of left calf with fat layer exposed; L97.322 Non-pressure chronic ulcer of left ankle with fat layer exposed; L97.212 Non-pressure chronic ulcer of right calf with fat layer exposed; L97.312 Non-pressure chronic ulcer of right ankle with fat layer exposed; E55.9 Vitamin D deficiency, unspecified ==

== ENCOUNTER 2024-05-02 15:25 | Outpatient (CLI) | payer MEDICARE | END 2024-05-02 15:26 | disposition home or self-care (01) | LOC: CSHWCC 15:25 | PROVIDERS: ATTEND Nurse Practitioner Family | DX: I87.313 Chronic venous hypertension (idiopathic) with ulcer of bilateral lower extremity (principal); L97.212 Non-pressure chronic ulcer of right calf with fat layer exposed; L97.222 Non-pressure chronic ulcer of left calf with fat layer exposed; L97.312 Non-pressure chronic ulcer of right ankle with fat layer exposed; L97.322 Non-pressure chronic ulcer of left ankle with fat layer exposed; E55.9 Vitamin D deficiency, unspecified | CPT/HCPCS: 11042 ==

== ENCOUNTER 2024-05-10 10:31 | Outpatient (CLI) | payer MEDICARE, OTHER | END 2024-05-10 10:32 | disposition home or self-care (01) | LOC: CSHWCC 10:31 | PROVIDERS: ATTEND Nurse Practitioner Family | DX: I87.313 Chronic venous hypertension (idiopathic) with ulcer of bilateral lower extremity (principal); L97.212 Non-pressure chronic ulcer of right calf with fat layer exposed; L97.222 Non-pressure chronic ulcer of left calf with fat layer exposed; L97.322 Non-pressure chronic ulcer of left ankle with fat layer exposed; L97.312 Non-pressure chronic ulcer of right ankle with fat layer exposed; E55.9 Vitamin D deficiency, unspecified | CPT/HCPCS: 11042; 87070; 87077; 87186; 87205; G0463; 99213 ==

== ENCOUNTER 2024-08-09 14:33 | Outpatient (CLI) | payer MEDICARE, OTHER | END 2024-08-09 14:34 | disposition home or self-care (01) | LOC: CSHWCC 14:33 | PROVIDERS: ATTEND Nurse Practitioner Family | DX: I87.313 Chronic venous hypertension (idiopathic) with ulcer of bilateral lower extremity (principal); L97.212 Non-pressure chronic ulcer of right calf with fat layer exposed; L97.312 Non-pressure chronic ulcer of right ankle with fat layer exposed; E55.9 Vitamin D deficiency, unspecified ==

== ENCOUNTER 2024-10-15 13:22 | Outpatient (CLI) | payer MEDICARE | END 2024-10-15 13:23 | disposition home or self-care (01) | LOC: CSHWCC 13:22 | PROVIDERS: ATTEND Nurse Practitioner Family | DX: I87.313 Chronic venous hypertension (idiopathic) with ulcer of bilateral lower extremity (principal); L97.212 Non-pressure chronic ulcer of right calf with fat layer exposed; L97.312 Non-pressure chronic ulcer of right ankle with fat layer exposed; L97.929 Non-pressure chronic ulcer of unspecified part of left lower leg with unspecified severity; E55.9 Vitamin D deficiency, unspecified; I89.0 Lymphedema, not elsewhere classified | CPT/HCPCS: 29581 ==

== ENCOUNTER 2024-11-12 15:22 | Outpatient (CLI) | payer MEDICARE | END 2024-11-12 15:23 | disposition home or self-care (01) | LOC: CSHWCC 15:22 | PROVIDERS: ATTEND Nurse Practitioner Family | DX: I87.313 Chronic venous hypertension (idiopathic) with ulcer of bilateral lower extremity (principal); L97.212 Non-pressure chronic ulcer of right calf with fat layer exposed; L97.312 Non-pressure chronic ulcer of right ankle with fat layer exposed; E55.9 Vitamin D deficiency, unspecified; I89.0 Lymphedema, not elsewhere classified; L97.929 Non-pressure chronic ulcer of unspecified part of left lower leg with unspecified severity | CPT/HCPCS: 11042; 11045; 99213; G0463 ==

== ENCOUNTER 2024-11-20 12:47 | Outpatient (CLI) | payer MEDICARE | END 2024-11-20 12:48 | disposition home or self-care (01) | LOC: CSHWCC 12:47 | PROVIDERS: ATTEND Nurse Practitioner Family | DX: I87.313 Chronic venous hypertension (idiopathic) with ulcer of bilateral lower extremity (principal); L97.212 Non-pressure chronic ulcer of right calf with fat layer exposed; L97.312 Non-pressure chronic ulcer of right ankle with fat layer exposed; L97.929 Non-pressure chronic ulcer of unspecified part of left lower leg with unspecified severity; E55.9 Vitamin D deficiency, unspecified; I89.0 Lymphedema, not elsewhere classified | CPT/HCPCS: 29581 ==

== ENCOUNTER 2024-11-23 07:56 | Outpatient (CLI) | payer MEDICARE | END 2024-11-23 07:57 | disposition home or self-care (01) | LOC: CSHWCC 07:56 | PROVIDERS: ATTEND Nurse Practitioner Family | DX: I87.313 Chronic venous hypertension (idiopathic) with ulcer of bilateral lower extremity (principal); L97.212 Non-pressure chronic ulcer of right calf with fat layer exposed; L97.312 Non-pressure chronic ulcer of right ankle with fat layer exposed; L97.929 Non-pressure chronic ulcer of unspecified part of left lower leg with unspecified severity; E55.9 Vitamin D deficiency, unspecified; I89.0 Lymphedema, not elsewhere classified | CPT/HCPCS: 11042; 11045; G0463; 99213 ==

== ENCOUNTER 2024-11-27 16:13 | Outpatient (CLI) | payer MEDICARE | END 2024-11-27 16:14 | disposition home or self-care (01) | LOC: CSHWCC 16:13 | PROVIDERS: ATTEND Nurse Practitioner Family | DX: I87.313 Chronic venous hypertension (idiopathic) with ulcer of bilateral lower extremity (principal); L97.212 Non-pressure chronic ulcer of right calf with fat layer exposed; L97.312 Non-pressure chronic ulcer of right ankle with fat layer exposed; L97.929 Non-pressure chronic ulcer of unspecified part of left lower leg with unspecified severity; E55.9 Vitamin D deficiency, unspecified; I89.0 Lymphedema, not elsewhere classified | CPT/HCPCS: 29581 ==

== ENCOUNTER 2024-11-30 11:23 | Outpatient (CLI) | payer MEDICARE | END 2024-11-30 11:24 | disposition home or self-care (01) | LOC: CSHWCC 11:23 | PROVIDERS: ATTEND Nurse Practitioner Family | DX: I87.313 Chronic venous hypertension (idiopathic) with ulcer of bilateral lower extremity (principal); L97.212 Non-pressure chronic ulcer of right calf with fat layer exposed; L97.312 Non-pressure chronic ulcer of right ankle with fat layer exposed; E55.9 Vitamin D deficiency, unspecified; I89.0 Lymphedema, not elsewhere classified; L08.9 Local infection of the skin and subcutaneous tissue, unspecified | CPT/HCPCS: 11042; 11045; G0463; 99213 ==

== ENCOUNTER 2024-12-07 10:39 | Outpatient (CLI) | payer OTHER | END 2024-12-07 10:40 | disposition home or self-care (01) | LOC: CSHWCC 10:39 | PROVIDERS: ATTEND Nurse Practitioner Family | DX: I87.313 Chronic venous hypertension (idiopathic) with ulcer of bilateral lower extremity (principal); L97.212 Non-pressure chronic ulcer of right calf with fat layer exposed; L97.312 Non-pressure chronic ulcer of right ankle with fat layer exposed; E55.9 Vitamin D deficiency, unspecified; I89.0 Lymphedema, not elsewhere classified ==

== ENCOUNTER 2024-12-07 11:49 | Emergency (ER) | payer MEDICARE, OTHER ==
[2024-12-07] MEDS ORDERED: Ketorolac Tromethamine 30 MG (1 mL) VIAL ONE (13:25)
== END 2024-12-07 13:50 | disposition home or self-care (01) ==
LOC: CSHERS 11:49
DX: S86.911A Strain of unspecified muscle(s) and tendon(s) at lower leg level, right leg, initial encounter (principal); I10 Essential (primary) hypertension; E66.9 Obesity, unspecified; X58.XXXA Exposure to other specified factors, initial encounter; Y93.01 Activity, walking, marching and hiking
CPT/HCPCS: 73564; J1885; 96372; 99283

== ENCOUNTER 2024-12-11 08:36 | Outpatient (CLI) | payer MEDICARE | END 2024-12-11 08:37 | disposition home or self-care (01) | LOC: CSHWCC 08:36 | PROVIDERS: ATTEND Nurse Practitioner Family | DX: I87.313 Chronic venous hypertension (idiopathic) with ulcer of bilateral lower extremity (principal); L97.212 Non-pressure chronic ulcer of right calf with fat layer exposed; L97.312 Non-pressure chronic ulcer of right ankle with fat layer exposed; E55.9 Vitamin D deficiency, unspecified; I89.0 Lymphedema, not elsewhere classified; L97.929 Non-pressure chronic ulcer of unspecified part of left lower leg with unspecified severity | CPT/HCPCS: 29581 ==

== ENCOUNTER 2024-12-13 15:38 | Outpatient (CLI) | payer MEDICARE | END 2024-12-13 15:39 | disposition home or self-care (01) | LOC: CSHWCC 15:38 | PROVIDERS: ATTEND Nurse Practitioner Family | DX: I87.313 Chronic venous hypertension (idiopathic) with ulcer of bilateral lower extremity (principal); L97.212 Non-pressure chronic ulcer of right calf with fat layer exposed; L97.312 Non-pressure chronic ulcer of right ankle with fat layer exposed; E55.9 Vitamin D deficiency, unspecified; I89.0 Lymphedema, not elsewhere classified; L97.929 Non-pressure chronic ulcer of unspecified part of left lower leg with unspecified severity | CPT/HCPCS: 11042; 11045 ==

== ENCOUNTER 2024-12-18 15:55 | Outpatient (CLI) | payer MEDICARE | END 2024-12-18 15:56 | disposition home or self-care (01) | LOC: CSHWCC 15:55 | PROVIDERS: ATTEND Nurse Practitioner Family | DX: I87.313 Chronic venous hypertension (idiopathic) with ulcer of bilateral lower extremity (principal); L97.212 Non-pressure chronic ulcer of right calf with fat layer exposed; L97.312 Non-pressure chronic ulcer of right ankle with fat layer exposed; E55.9 Vitamin D deficiency, unspecified; I89.0 Lymphedema, not elsewhere classified; L97.929 Non-pressure chronic ulcer of unspecified part of left lower leg with unspecified severity | CPT/HCPCS: 29581 ==

== ENCOUNTER 2024-12-21 11:46 | Outpatient (CLI) | payer MEDICARE | END 2024-12-21 11:47 | disposition home or self-care (01) | LOC: CSHWCC 11:46 | PROVIDERS: ATTEND Nurse Practitioner Family | DX: I87.313 Chronic venous hypertension (idiopathic) with ulcer of bilateral lower extremity (principal); L97.212 Non-pressure chronic ulcer of right calf with fat layer exposed; L97.312 Non-pressure chronic ulcer of right ankle with fat layer exposed; E55.9 Vitamin D deficiency, unspecified; I89.0 Lymphedema, not elsewhere classified; L97.929 Non-pressure chronic ulcer of unspecified part of left lower leg with unspecified severity | CPT/HCPCS: 11042; 11045 ==

== ENCOUNTER 2024-12-25 14:25 | Outpatient (CLI) | payer MEDICARE | END 2024-12-25 14:26 | disposition home or self-care (01) | LOC: CSHWCC 14:25 | PROVIDERS: ATTEND Nurse Practitioner Family | DX: I87.313 Chronic venous hypertension (idiopathic) with ulcer of bilateral lower extremity (principal); L97.212 Non-pressure chronic ulcer of right calf with fat layer exposed; L97.312 Non-pressure chronic ulcer of right ankle with fat layer exposed; E55.9 Vitamin D deficiency, unspecified; I89.0 Lymphedema, not elsewhere classified | CPT/HCPCS: 29581 ==

== ENCOUNTER 2024-12-28 13:05 | Outpatient (CLI) | payer MEDICARE | END 2024-12-28 13:06 | disposition home or self-care (01) | LOC: CSHWCC 13:05 | PROVIDERS: ATTEND Nurse Practitioner Family | DX: I87.313 Chronic venous hypertension (idiopathic) with ulcer of bilateral lower extremity (principal); L97.212 Non-pressure chronic ulcer of right calf with fat layer exposed; L97.312 Non-pressure chronic ulcer of right ankle with fat layer exposed; E55.9 Vitamin D deficiency, unspecified; I89.0 Lymphedema, not elsewhere classified; L97.929 Non-pressure chronic ulcer of unspecified part of left lower leg with unspecified severity | CPT/HCPCS: 11042; 11045; G0463; 99213 ==

== ENCOUNTER 2025-01-01 10:07 | Outpatient (CLI) | payer MEDICARE | END 2025-01-01 10:08 | disposition home or self-care (01) | LOC: CSHWCC 10:07 | PROVIDERS: ATTEND Nurse Practitioner Family | DX: I87.313 Chronic venous hypertension (idiopathic) with ulcer of bilateral lower extremity (principal); L97.212 Non-pressure chronic ulcer of right calf with fat layer exposed; L97.312 Non-pressure chronic ulcer of right ankle with fat layer exposed; L97.929 Non-pressure chronic ulcer of unspecified part of left lower leg with unspecified severity; I89.0 Lymphedema, not elsewhere classified; E55.9 Vitamin D deficiency, unspecified | CPT/HCPCS: 29581 ==

== ENCOUNTER 2025-01-04 09:11 | Outpatient (CLI) | payer MEDICARE | END 2025-01-04 09:12 | disposition home or self-care (01) | LOC: CSHWCC 09:11 | PROVIDERS: ATTEND Nurse Practitioner Family | DX: I87.313 Chronic venous hypertension (idiopathic) with ulcer of bilateral lower extremity (principal); L97.212 Non-pressure chronic ulcer of right calf with fat layer exposed; L97.312 Non-pressure chronic ulcer of right ankle with fat layer exposed; E55.9 Vitamin D deficiency, unspecified; I89.0 Lymphedema, not elsewhere classified; L08.9 Local infection of the skin and subcutaneous tissue, unspecified; L97.929 Non-pressure chronic ulcer of unspecified part of left lower leg with unspecified severity | CPT/HCPCS: 11042; 11045 ==

== ENCOUNTER 2025-01-08 11:38 | Outpatient (CLI) | payer MEDICARE | END 2025-01-08 11:39 | disposition home or self-care (01) | LOC: CSHWCC 11:38 | PROVIDERS: ATTEND Nurse Practitioner Family | DX: I87.313 Chronic venous hypertension (idiopathic) with ulcer of bilateral lower extremity (principal); L97.212 Non-pressure chronic ulcer of right calf with fat layer exposed; L97.312 Non-pressure chronic ulcer of right ankle with fat layer exposed; E55.9 Vitamin D deficiency, unspecified; I89.0 Lymphedema, not elsewhere classified; L08.9 Local infection of the skin and subcutaneous tissue, unspecified; L97.929 Non-pressure chronic ulcer of unspecified part of left lower leg with unspecified severity | CPT/HCPCS: 29581 ==

== ENCOUNTER 2025-01-11 11:17 | Outpatient (CLI) | payer MEDICARE | END 2025-01-11 11:18 | disposition home or self-care (01) | LOC: CSHWCC 11:17 | PROVIDERS: ATTEND Nurse Practitioner Family | DX: I87.313 Chronic venous hypertension (idiopathic) with ulcer of bilateral lower extremity (principal); L97.212 Non-pressure chronic ulcer of right calf with fat layer exposed; L97.312 Non-pressure chronic ulcer of right ankle with fat layer exposed; L97.929 Non-pressure chronic ulcer of unspecified part of left lower leg with unspecified severity; E55.9 Vitamin D deficiency, unspecified; I89.0 Lymphedema, not elsewhere classified; L08.9 Local infection of the skin and subcutaneous tissue, unspecified; R11.0 Nausea | CPT/HCPCS: 11042; 11045 ==

== ENCOUNTER 2025-01-14 11:09 | Outpatient (CLI) | payer MEDICARE | END 2025-01-14 11:10 | disposition home or self-care (01) | LOC: CSHWCC 11:09 | PROVIDERS: ATTEND Nurse Practitioner Family | DX: I87.313 Chronic venous hypertension (idiopathic) with ulcer of bilateral lower extremity (principal); L97.212 Non-pressure chronic ulcer of right calf with fat layer exposed; L97.312 Non-pressure chronic ulcer of right ankle with fat layer exposed; I89.0 Lymphedema, not elsewhere classified; L08.9 Local infection of the skin and subcutaneous tissue, unspecified; E55.9 Vitamin D deficiency, unspecified; R11.0 Nausea | CPT/HCPCS: 29581 ==

== ENCOUNTER 2025-01-16 11:49 | Outpatient (CLI) | payer MEDICARE | END 2025-01-16 11:50 | disposition home or self-care (01) | LOC: CSHWCC 11:49 | PROVIDERS: ATTEND Nurse Practitioner Family | DX: I87.313 Chronic venous hypertension (idiopathic) with ulcer of bilateral lower extremity (principal); L97.212 Non-pressure chronic ulcer of right calf with fat layer exposed; L97.312 Non-pressure chronic ulcer of right ankle with fat layer exposed; E55.9 Vitamin D deficiency, unspecified; I89.0 Lymphedema, not elsewhere classified; L08.9 Local infection of the skin and subcutaneous tissue, unspecified; R11.0 Nausea | CPT/HCPCS: 11042 ==

== ENCOUNTER 2025-01-18 09:45 | Outpatient (CLI) | payer MEDICARE | END 2025-01-18 09:46 | disposition home or self-care (01) | LOC: CSHWCC 09:45 | PROVIDERS: ATTEND Nurse Practitioner Family | DX: I87.313 Chronic venous hypertension (idiopathic) with ulcer of bilateral lower extremity (principal); L97.212 Non-pressure chronic ulcer of right calf with fat layer exposed; L97.312 Non-pressure chronic ulcer of right ankle with fat layer exposed; L97.929 Non-pressure chronic ulcer of unspecified part of left lower leg with unspecified severity; E55.9 Vitamin D deficiency, unspecified; I89.0 Lymphedema, not elsewhere classified; L08.9 Local infection of the skin and subcutaneous tissue, unspecified; R11.0 Nausea | CPT/HCPCS: 29581 ==

== ENCOUNTER 2025-01-25 11:05 | Outpatient (CLI) | payer MEDICARE | END 2025-01-25 11:06 | disposition home or self-care (01) | LOC: CSHWCC 11:05 | PROVIDERS: ATTEND Nurse Practitioner Family | DX: I87.313 Chronic venous hypertension (idiopathic) with ulcer of bilateral lower extremity (principal); L97.212 Non-pressure chronic ulcer of right calf with fat layer exposed; L97.312 Non-pressure chronic ulcer of right ankle with fat layer exposed; L97.929 Non-pressure chronic ulcer of unspecified part of left lower leg with unspecified severity; I89.0 Lymphedema, not elsewhere classified; L08.9 Local infection of the skin and subcutaneous tissue, unspecified; R11.0 Nausea; E55.9 Vitamin D deficiency, unspecified | CPT/HCPCS: 29581 ==

== ENCOUNTER 2025-01-28 10:49 | Outpatient (CLI) | payer MEDICARE | END 2025-01-28 10:50 | disposition home or self-care (01) | LOC: CSHWCC 10:49 | PROVIDERS: ATTEND Nurse Practitioner Family | DX: I87.313 Chronic venous hypertension (idiopathic) with ulcer of bilateral lower extremity (principal); L97.212 Non-pressure chronic ulcer of right calf with fat layer exposed; L97.312 Non-pressure chronic ulcer of right ankle with fat layer exposed; L97.929 Non-pressure chronic ulcer of unspecified part of left lower leg with unspecified severity; I89.0 Lymphedema, not elsewhere classified; E55.9 Vitamin D deficiency, unspecified; L08.9 Local infection of the skin and subcutaneous tissue, unspecified; R11.0 Nausea | CPT/HCPCS: 29581 ==

== ENCOUNTER 2025-01-30 10:51 | Outpatient (CLI) | payer MEDICARE | END 2025-01-30 10:52 | disposition home or self-care (01) | LOC: CSHWCC 10:51 | PROVIDERS: ATTEND Nurse Practitioner Family | DX: I87.313 Chronic venous hypertension (idiopathic) with ulcer of bilateral lower extremity (principal); L97.212 Non-pressure chronic ulcer of right calf with fat layer exposed; L97.312 Non-pressure chronic ulcer of right ankle with fat layer exposed; E55.9 Vitamin D deficiency, unspecified; I89.0 Lymphedema, not elsewhere classified; L08.9 Local infection of the skin and subcutaneous tissue, unspecified; R11.0 Nausea; L97.929 Non-pressure chronic ulcer of unspecified part of left lower leg with unspecified severity | CPT/HCPCS: 11042; 11045 ==

== ENCOUNTER 2025-02-01 09:13 | Outpatient (CLI) | payer MEDICARE | END 2025-02-01 09:14 | disposition home or self-care (01) | LOC: CSHWCC 09:13 | PROVIDERS: ATTEND Nurse Practitioner Family | DX: I87.313 Chronic venous hypertension (idiopathic) with ulcer of bilateral lower extremity (principal); L97.212 Non-pressure chronic ulcer of right calf with fat layer exposed; L97.312 Non-pressure chronic ulcer of right ankle with fat layer exposed; L97.929 Non-pressure chronic ulcer of unspecified part of left lower leg with unspecified severity; E55.9 Vitamin D deficiency, unspecified; I89.0 Lymphedema, not elsewhere classified; L08.9 Local infection of the skin and subcutaneous tissue, unspecified; R11.0 Nausea | CPT/HCPCS: 29581 ==

== ENCOUNTER 2025-02-04 12:59 | Outpatient (CLI) | payer MEDICARE | END 2025-02-04 13:00 | disposition home or self-care (01) | LOC: CSHWCC 12:59 | PROVIDERS: ATTEND Nurse Practitioner Family | DX: I87.313 Chronic venous hypertension (idiopathic) with ulcer of bilateral lower extremity (principal); L97.212 Non-pressure chronic ulcer of right calf with fat layer exposed; L97.312 Non-pressure chronic ulcer of right ankle with fat layer exposed; E55.9 Vitamin D deficiency, unspecified; I89.0 Lymphedema, not elsewhere classified; L08.9 Local infection of the skin and subcutaneous tissue, unspecified; R11.0 Nausea | CPT/HCPCS: 29581 ==

== ENCOUNTER 2025-02-08 12:51 | Outpatient (CLI) | payer MEDICARE | END 2025-02-08 12:52 | disposition home or self-care (01) | LOC: CSHWCC 12:51 | PROVIDERS: ATTEND Nurse Practitioner Family | DX: I87.313 Chronic venous hypertension (idiopathic) with ulcer of bilateral lower extremity (principal); L97.212 Non-pressure chronic ulcer of right calf with fat layer exposed; L97.312 Non-pressure chronic ulcer of right ankle with fat layer exposed; E55.9 Vitamin D deficiency, unspecified; I89.0 Lymphedema, not elsewhere classified; L08.9 Local infection of the skin and subcutaneous tissue, unspecified; R11.0 Nausea; L97.929 Non-pressure chronic ulcer of unspecified part of left lower leg with unspecified severity | CPT/HCPCS: 29581 ==

== ENCOUNTER 2025-02-11 11:11 | Outpatient (CLI) | payer MEDICARE | END 2025-02-11 11:12 | disposition home or self-care (01) | LOC: CSHWCC 11:11 | PROVIDERS: ATTEND Nurse Practitioner Family | DX: I87.313 Chronic venous hypertension (idiopathic) with ulcer of bilateral lower extremity (principal); L97.212 Non-pressure chronic ulcer of right calf with fat layer exposed; L97.312 Non-pressure chronic ulcer of right ankle with fat layer exposed; E55.9 Vitamin D deficiency, unspecified; I89.0 Lymphedema, not elsewhere classified; L08.9 Local infection of the skin and subcutaneous tissue, unspecified; R11.0 Nausea; L97.929 Non-pressure chronic ulcer of unspecified part of left lower leg with unspecified severity | CPT/HCPCS: 29581 ==

== ENCOUNTER 2025-02-14 15:08 | Outpatient (CLI) | payer MEDICARE | END 2025-02-14 15:09 | disposition home or self-care (01) | LOC: CSHWCC 15:08 | PROVIDERS: ATTEND Nurse Practitioner Family | DX: I87.313 Chronic venous hypertension (idiopathic) with ulcer of bilateral lower extremity (principal); L97.212 Non-pressure chronic ulcer of right calf with fat layer exposed; L97.312 Non-pressure chronic ulcer of right ankle with fat layer exposed; E55.9 Vitamin D deficiency, unspecified; I89.0 Lymphedema, not elsewhere classified; L08.9 Local infection of the skin and subcutaneous tissue, unspecified; R11.0 Nausea | CPT/HCPCS: 11042; 11045; G0463; 99213 ==

== ENCOUNTER 2025-02-28 10:31 | Outpatient (CLI) | payer MEDICARE | END 2025-02-28 10:32 | disposition home or self-care (01) | LOC: CSHWCC 10:31 | PROVIDERS: ATTEND Nurse Practitioner Family | DX: I87.313 Chronic venous hypertension (idiopathic) with ulcer of bilateral lower extremity (principal); L97.212 Non-pressure chronic ulcer of right calf with fat layer exposed; L97.312 Non-pressure chronic ulcer of right ankle with fat layer exposed; L97.929 Non-pressure chronic ulcer of unspecified part of left lower leg with unspecified severity; E55.9 Vitamin D deficiency, unspecified; I89.0 Lymphedema, not elsewhere classified; L08.9 Local infection of the skin and subcutaneous tissue, unspecified; R11.0 Nausea | CPT/HCPCS: 29581 ==

== ENCOUNTER 2025-03-04 15:09 | Outpatient (CLI) | payer MEDICARE | END 2025-03-04 15:10 | disposition home or self-care (01) | LOC: CSHWCC 15:09 | PROVIDERS: ATTEND Nurse Practitioner Family | DX: I87.313 Chronic venous hypertension (idiopathic) with ulcer of bilateral lower extremity (principal); L97.212 Non-pressure chronic ulcer of right calf with fat layer exposed; L97.312 Non-pressure chronic ulcer of right ankle with fat layer exposed; L97.929 Non-pressure chronic ulcer of unspecified part of left lower leg with unspecified severity; E55.9 Vitamin D deficiency, unspecified; I89.0 Lymphedema, not elsewhere classified; L08.9 Local infection of the skin and subcutaneous tissue, unspecified; R11.0 Nausea | CPT/HCPCS: 11042; G0463; 99213 ==

== ENCOUNTER 2025-03-12 12:49 | Outpatient (CLI) | payer MEDICARE | END 2025-03-12 12:50 | disposition home or self-care (01) | LOC: CSHWCC 12:49 | PROVIDERS: ATTEND Nurse Practitioner Family | DX: I87.313 Chronic venous hypertension (idiopathic) with ulcer of bilateral lower extremity (principal); L97.212 Non-pressure chronic ulcer of right calf with fat layer exposed; L97.312 Non-pressure chronic ulcer of right ankle with fat layer exposed; L97.929 Non-pressure chronic ulcer of unspecified part of left lower leg with unspecified severity; E55.9 Vitamin D deficiency, unspecified; I89.0 Lymphedema, not elsewhere classified; L08.9 Local infection of the skin and subcutaneous tissue, unspecified; R11.0 Nausea | CPT/HCPCS: 29581 ==

== ENCOUNTER 2025-03-15 08:59 | Outpatient (CLI) | payer MEDICARE | END 2025-03-15 09:00 | disposition home or self-care (01) | LOC: CSHWCC 08:59 | PROVIDERS: ATTEND Nurse Practitioner Family | DX: I87.313 Chronic venous hypertension (idiopathic) with ulcer of bilateral lower extremity (principal); L97.212 Non-pressure chronic ulcer of right calf with fat layer exposed; L97.312 Non-pressure chronic ulcer of right ankle with fat layer exposed; L97.929 Non-pressure chronic ulcer of unspecified part of left lower leg with unspecified severity; I89.0 Lymphedema, not elsewhere classified; E55.9 Vitamin D deficiency, unspecified; L08.9 Local infection of the skin and subcutaneous tissue, unspecified; R11.0 Nausea | CPT/HCPCS: 11042; G0463; 99213 ==

== ENCOUNTER 2025-03-18 15:03 | Outpatient (CLI) | payer MEDICARE | END 2025-03-18 15:04 | disposition home or self-care (01) | LOC: CSHWCC 15:03 | PROVIDERS: ATTEND Nurse Practitioner Family | DX: I87.313 Chronic venous hypertension (idiopathic) with ulcer of bilateral lower extremity (principal); L97.212 Non-pressure chronic ulcer of right calf with fat layer exposed; L97.312 Non-pressure chronic ulcer of right ankle with fat layer exposed; E55.9 Vitamin D deficiency, unspecified; I89.0 Lymphedema, not elsewhere classified; L08.9 Local infection of the skin and subcutaneous tissue, unspecified; R11.0 Nausea | CPT/HCPCS: 29581 ==

== ENCOUNTER 2025-03-22 10:56 | Outpatient (CLI) | payer MEDICARE | END 2025-03-22 10:57 | disposition home or self-care (01) | LOC: CSHWCC 10:56 | PROVIDERS: ATTEND Nurse Practitioner Family | DX: I87.313 Chronic venous hypertension (idiopathic) with ulcer of bilateral lower extremity (principal); L97.212 Non-pressure chronic ulcer of right calf with fat layer exposed; L97.312 Non-pressure chronic ulcer of right ankle with fat layer exposed; L97.929 Non-pressure chronic ulcer of unspecified part of left lower leg with unspecified severity; E55.9 Vitamin D deficiency, unspecified; I89.0 Lymphedema, not elsewhere classified; L08.9 Local infection of the skin and subcutaneous tissue, unspecified; R11.0 Nausea | CPT/HCPCS: 29581 ==

== ENCOUNTER 2025-03-29 15:27 | Outpatient (CLI) | payer MEDICARE | END 2025-03-29 15:28 | disposition home or self-care (01) | LOC: CSHWCC 15:27 | PROVIDERS: ATTEND Nurse Practitioner Family | DX: I87.313 Chronic venous hypertension (idiopathic) with ulcer of bilateral lower extremity (principal); L97.212 Non-pressure chronic ulcer of right calf with fat layer exposed; L97.312 Non-pressure chronic ulcer of right ankle with fat layer exposed; L97.929 Non-pressure chronic ulcer of unspecified part of left lower leg with unspecified severity; E55.9 Vitamin D deficiency, unspecified; I89.0 Lymphedema, not elsewhere classified; L08.9 Local infection of the skin and subcutaneous tissue, unspecified; R11.0 Nausea | CPT/HCPCS: 29581 ==

== ENCOUNTER 2025-04-03 15:29 | Outpatient (CLI) | payer MEDICARE | END 2025-04-03 15:30 | disposition home or self-care (01) | LOC: CSHWCC 15:29 | PROVIDERS: ATTEND Nurse Practitioner Family | DX: I87.313 Chronic venous hypertension (idiopathic) with ulcer of bilateral lower extremity (principal); L97.212 Non-pressure chronic ulcer of right calf with fat layer exposed; L97.312 Non-pressure chronic ulcer of right ankle with fat layer exposed; L97.929 Non-pressure chronic ulcer of unspecified part of left lower leg with unspecified severity; S81.811D Laceration without foreign body, right lower leg, subsequent encounter; I89.0 Lymphedema, not elsewhere classified; E55.9 Vitamin D deficiency, unspecified | CPT/HCPCS: 11042; 11045; G0463; 99214 ==